=== PATIENT | female | born 1950 | race Caucasian/White ===

== ENCOUNTER → 2018-05-19 10:52 | Outpatient (POV) | payer BC, SELFPAY | PROVIDERS: PCP Family Medicine; Visit Provider Dermatology | DX: Z00.00 Encounter for general adult medical examination without abnormal findings (principal) ==

== ENCOUNTER → 2019-10-04 09:12 | Outpatient (CLI) | payer MEDICARE, SELFPAY ==
[2019-10-04 09:40] LABS: Microscopic, Urine URINE MICROSCOPIC (MICROSCOPIC)
--- NOTE | 2019-10-04 09:52 | XR_ITS ---
PROCEDURE: XR CHEST 2V CLINICAL HISTORY: HTN,ASTHMA COMPARISON: CXR CHEST(2 VIEWS-NOT PORTABLE) from 02/03/2013 FINDINGS: Heart size is borderline. There is an atherosclerotic aorta without CHF. The lungs are clear without infiltrates, suspicious nodules, or pleural effusions. No acute bony abnormalities. IMPRESSION: No acute findings. Dictated by: Alvin Michelle 10/04/2019 15:06 Electronically signed by Alvin Michelle in [facility] 10/04/2019 15:06
[2019-10-04 10:14] LABS: Basophils % 0.5 % (0.1-2.0); Eosinophils # 0.1 K/mm3 (0.0-0.4); Eosinophils % 0.7 % (0.1-12.0); Hemoglobin 14.4 g/dL (12.2-16.2); Lymphocytes # 1.7 K/mm3 (0.7-4.5); Lymphocytes % 23.6 % (10-50); Mean Corpuscular HGB Conc 33.5 g/dL (31.8-35.4); Mean Corpuscular Hemoglobin 28.5 pg (27.0-31.2); Mean Corpuscular Volume 84.9 fl (81-99); Mean Platelet Volume 7.6 fl (7.4-10.4); Monocytes # 0.4 K/mm3 (0.1-1.0); Monocytes % 5.6 % (1.7-9.3); Neutrophils % 69.6 % (37.0-80.0); Platelet Count 288 K/mm3 (142-424); Red Blood Count 5.06 M/mm3 (4.20-5.40); Red Cell Distribution Width 15.1 % (11.5-17.5); White Blood Count 7.2 K/mm3 (4.8-10.8)
[2019-10-04 10:17] LABS: Appearance,Urine CLEAR (Clear); Bilirubin,Urine Negative (Negative); Blood, Urine Negative (Negative); Color,Urine YELLOW (Yellow); Glucose,Urine (UA) Negative (Negative); Ketones,Urine Negative (Negative); Leukocyte Esterase,Urine 1+ (Negative); Nitrate,Urine Negative (Negative); Protein,Urine Negative (Negative); Specific Gravity, Urine 1.015 (1.005-1.030); Urobilinogen,Urine 0.2 EU/dl (0.2)
[2019-10-04 10:18] LABS: INR 0.94 (0.9-1.1); Prothrombin Time 9.8 seconds (9.4-11.8)
--- NOTE | 2019-10-04 10:22 | ECG_ITS ---
APPROVED REPORT Exam: Resting ECG HR:60 bpm ECG Measurements Heart Rate 60 AXES GA 226 P 37 QRSd 86 QRS -9 QT 420 T 32 QTc 420 <Conclusion> Sinus rhythm with 1st degree AV block Low voltage QRS Incomplete RBBB Abnormal ECG Electronically signed by : Akil Pagan, 10/04/2019 17:55:09
[2019-10-04 10:34] LABS: Bacteria,Urine 2+ /lpf; Mucus,Urine Trace /lpf
[2019-10-04 10:40] LABS: Hemoglobin A1C 5.7 % (0.0-7.0)
[2019-10-04 11:07] LABS: Alanine Aminotransferase 32 U/L (9-52); Albumin Level 3.7 g/dL (3.4-5.0); Albumin/Globulin Ratio 1.1 (1.1-1.8); Alkaline Phosphatase 90 U/L (46-116); Anion Gap 16.4 mEq/L (5-15); Aspartate Amino Transferase 19 U/L (15-37); Bilirubin,Total 0.6 mg/dL (0.2-1.0); Blood Urea Nitrogen 19 mg/dL (7-18); Calcium 9.2 mg/dL (8.5-10.1); Carbon Dioxide 26 mmol/L (21.0-32.0); Chloride 105 mmol/L (98-107); Creatinine,Serum 1.17 mg/dL (0.55-1.02); Estimated Glomerular Filt Rate 46 ml/min (>60); GFR (African American) 56 ML/MIN (>60); Globulin 3.4 gm/dl (1.3-3.2); Glucose 113 mg/dL (74-106); Potassium 4.4 mmoL/L (3.5-5.1); Sodium 143 mmol/L (137-145); Total Protein,Serum 7.1 g/dL (6.4-8.2)
== END ==
PROVIDERS: PCP Family Medicine; Visit Provider Orthopaedic Surgery
DX: Z01.818 Encounter for other preprocedural examination (principal); Z79.899 Other long term (current) drug therapy; Z51.81 Encounter for therapeutic drug level monitoring; R82.90 Unspecified abnormal findings in urine
CPT/HCPCS: 36415; 71046; 80053; 81001; 83036; 85025; 85610; 85730; 87086; 87088; 87186; 93005

== ENCOUNTER 2021-07-31 09:48 | Emergency (ER) | payer MEDICARE, SELFPAY ==
--- NOTE | 2021-07-31 09:48 | ECG_ITS ---
APPROVED REPORT Exam: Resting ECG HR:61 bpm ECG Measurements Heart Rate 61 AXES UT 228 P 31 QRSd 92 QRS -27 QT 426 T 11 QTc 428 Conclusion Sinus rhythm with 1st degree AV block Low voltage QRS Late R wave progression Abnormal ECG Electronically signed by : Chucky Wise MD 07/31/2021 17:55:30
[2021-07-31 09:50] VITALS: BP 173/93; PULSE 63; RESP 18; TEMP 36.8; O2SAT 98; BMI 45.7
[2021-07-31 09:52] VITALS: BMI 45.7
--- NOTE | 2021-07-31 09:53 | HMH.EDGENADL ---
ED Disposition Clinical Impression: Atypical chest pain Disposition: Home, Self-Care Condition on Discharge: Good Instructions: DI for Atypical Chest Pain Additional Instructions: Tylenol or ibuprofen for pain. Additional instructions for CHEST PAIN: See your physician as soon as possible for further evaluation. Return immediately if worsening chest pain, vomiting, shortness of breath, fever, coughing of blood. Referrals: Benjamin Johnston MD [Primary Care Provider] - - Critical Care Critical Care Time: No Attestation: On , the high probability of a clinically significant, sudden or life threatening deterioration of the following system(s) required my full and direct attention, intervention and personal management. The time I documented below is in addition to time spent performing reported procedures but includes the following listed in this critical care notation. Medical Decision Making - Jose Inquiry Pt receiving controlled substance: No Vital Signs: 07/31/21 09:50 07/31/21 13:51 Temperature 98.2 F 98.2 F Temperature Source Oral Pulse Rate 61 Pulse Rate [Right Radial] 63 Respiratory Rate 18 17 Blood Pressure 166/87 H Blood Pressure [Right Arm] 173/93 H Blood Pressure Mean [Right Arm] 119 02 Sat by Pulse Oximetry 98 Oxygen Delivery Method Room Air Room Air - Lab Data Lab Results 07/31/21 09:50: WBC 6.2, RBC 5.22, Hgb 15.5, Hct 45.1, MCV 86.3, MCH 29.7, MCHC 34.4, RDW 13.8, Plt Count 280, MPV 6.8 L, Neut % (Auto) 65.2, Lymph % (Auto) 26.6, [place] % (Auto) 6.6, Eos % (Auto) 0.9, Baso % (Auto) 0.6, Neut # (Auto) 4.1, Lymph # (Auto) 1.7, [place] # (Auto) 0.4, Eos # (Auto) 0.1, Baso # (Auto) 0.0 07/31/21 09:50: Sodium 138, Potassium 4.3, Chloride 100, Carbon Dioxide 31 H, Anion Gap 11.3, BUN 23 H, Creatinine 1.10 H, Estimated Creat Clear 39, Estimated GFR 49 L, Est GFR ( Amer) 60, Glucose 154 H, Calcium 9.8, Troponin I < 0.01 07/31/21 12:48: Troponin I < 0.01 Result diagrams: 07/31/21 09:50 07/31/21 09:50 Orders (Tests/Meds): ED MEDICATIONS Discontinued Medications Generic Name Dose Route Start Last Admin Trade Name Alek PRN Reason Stop Dose Admin Aspirin 324 mg 07/31/21 09:53 07/31/21 10:00 Aspirin 81mg Chewable Tablet PO 07/31/21 09:54 324 mg ONCE ONE Administration Ketorolac Tromethamine 15 mg 07/31/21 13:44 07/31/21 13:46 Ketorolac 30mg/Ml Vial IV 07/31/21 13:45 15 mg ONCE ONE Administration - Radiology Data #1 Image(s): Chest Image Reviewed: Yes I reviewed the patient's radiology image, Yes I have reviewed radiologist's interpretation PROCEDURE: XR CHEST 2V CLINICAL HISTORY: cp COMPARISON: CR CXR CHEST(2 VIEWS-NOT PORTABLE) from 02/03/2013 CR XR CHEST 2V from 10/04/2019 FINDINGS: Mild cardiomegaly without failure. The lungs are clear without infiltrates, suspicious nodules, or pleural effusions. There are increased markings in the lung base posteriorly on the lateral view may be related to vascular crowding versus atelectasis or infiltrate. No acute bony abnormalities. IMPRESSION: Increased markings in the lung base posteriorly which may be related to vascular crowding versus patchy atelectasis or infiltrate. Dictated by: Ajay Carcamo MD 07/31/2021 10:39 Ajay Carcamo MD in [facility] 07/31/2021 10:39 - ECG Data Tracing #1 EKG interpreted by José Miguel Garcia MD: Rhythm: sinus Rate: 61 [place]: Left Ectopy: none Conduction: Incomplete right bundle branch block, first-degree AV block ST Segment Changes: none T Wave Changes: none Q Waves: none No evidence of acute ischemia or injury Poor R wave progression Prior electrocardiagrams reviewed. No significant change from prior tracings. - Reevaluation(s) Time: 13:45 Reevaluation #1: Pulse ox 100% on room air. No change in symptoms. Says it still hurts when she puts pressure on the back of her left shoulder. Second troponin normal.
[2021-07-31 10:06] LABS: Basophils % 0.6 % (0.1-2.0); Eosinophils # 0.1 K/mm3 (0.0-0.4); Eosinophils % 0.9 % (0.1-12.0); Hematocrit 45.1 % (37.0-47.0); Hemoglobin 15.5 g/dL (12.2-16.2); Lymphocytes # 1.7 K/mm3 (0.7-4.5); Lymphocytes % 26.6 % (10-50); Mean Corpuscular HGB Conc 34.4 g/dL (31.8-35.4); Mean Corpuscular Hemoglobin 29.7 pg (27.0-31.2); Mean Corpuscular Volume 86.3 fl (81-99); Mean Platelet Volume 6.8 fl (7.4-10.4); Monocytes # 0.4 K/mm3 (0.1-1.0); Monocytes % 6.6 % (1.7-9.3); Neutrophils # 4.1 K/mm3 (1.8-7.8); Neutrophils % 65.2 % (37.0-80.0); Platelet Count 280 K/mm3 (142-424); Red Blood Count 5.22 M/mm3 (4.20-5.40); Red Cell Distribution Width 13.8 % (11.5-17.5); White Blood Count 6.2 K/mm3 (4.8-10.8)
[2021-07-31 10:10] LABS: Anion Gap 11.3 mEq/L (5-15); Blood Urea Nitrogen 23 mg/dl (7-17); Calcium 9.8 mg/dl (8.4-10.2); Carbon Dioxide 31 mmol/L (22.0-30.0); Chloride 100 mmol/L (98-107); Creatinine Clearance Estimated 39 mL/min (50-200); Estimated Glomerular Filt Rate 49 ml/min (>60); GFR (African American) 60 ML/MIN (>60); Glucose 154 mg/dl (74-100); Potassium 4.3 mmoL/L (3.5-5.1); Sodium 138 mmol/L (136-145)
--- NOTE | 2021-07-31 10:14 | PC.NURSE ---
pt to xray
[2021-07-31 10:24] LABS: Troponin I < 0.01 ng/ml (0.00-0.034)
[2021-07-31 13:28] LABS: Troponin I < 0.01 ng/ml (0.00-0.034)
[2021-07-31 13:51] VITALS: BP 166/87; PULSE 61; RESP 17; TEMP 36.8; O2SAT 98
== END 2021-07-31 13:53 | disposition home or self-care (01) ==
PROVIDERS: Emergency Provider Emergency Medicine; PCP Family Medicine
DX: R07.89 Other chest pain (principal); R73.9 Hyperglycemia, unspecified; E78.5 Hyperlipidemia, unspecified; I10 Essential (primary) hypertension; Z79.899 Other long term (current) drug therapy
CPT/HCPCS: 71046; 80048; 84484; 85025; 93005; 96374; 99283

== ENCOUNTER 2021-11-12 23:33 | Emergency (ER) | payer MEDICARE, SELFPAY ==
[2021-11-12 23:34] VITALS: BP 185/93; PULSE 73; RESP 18; TEMP 36.8; O2SAT 93; BMI 44.8
[2021-11-12 23:45] VITALS: BMI 44.8
--- NOTE | 2021-11-12 23:48 | ECG_ITS ---
APPROVED REPORT Exam: Resting ECG HR:80 bpm ECG Measurements Heart Rate 80 AXES SC 118 P 197 QRSd 88 QRS -11 QT 391 T 44 QTc 427 Conclusion ECTOPIC ATRIAL RHYTHM WITH SHORT SC INTERVAL WITH FREQUENT SUPRAVENTRICULAR PREMATURE COMPLEXES Poor R wave progression, previously noted ABNORMAL RHYTHM ECG UNCONFIRMED REPORT Electronically signed by : Chucky Wise MD 11/15/2021 16:21:12
[2021-11-13] VITALS (13 sets, daily range): BP systolic 147–210; BP diastolic 74–104; PULSE 71–110; RESP 14–22; TEMP 36.6; O2SAT 92–97
--- NOTE | 2021-11-13 | CT_ITS ---
PROCEDURE INFORMATION: Exam: CT Abdomen And Pelvis Without Contrast Exam date and time: 11/13/2021 12:19 AM Age: 71 years old Clinical indication: Abdominal pain; Prior surgery; Surgery type: Cholecystectomy; Additional info: Abd pain TECHNIQUE: Imaging protocol: Computed tomography of the abdomen and pelvis without contrast. Radiation optimization: All CT scans at this facility use at least one of these dose optimization techniques: automated exposure control; mA and/or kV adjustment per patient size (includes targeted exams where dose is matched to clinical indication); or iterative reconstruction. COMPARISON: CR XR CHEST 2V 11/13/2021 12:10 AM FINDINGS: Tubes, catheters and devices: None noted. Lungs: Lung bases appear clear. Heart: No significant coronary calcifications. No cardiomegaly. No significant pericardial effusion. Liver: Normal. No mass. Gallbladder and bile ducts: Cholecystectomy. Extrahepatic ductal dilation 16 mm. Choledocholithiasis x2. Pancreas: Choledocholithiasis. No ductal dilation. Spleen: Normal. No splenomegaly. Adrenal glands: Normal. No mass. Kidneys and ureters: Normal. No hydronephrosis. Stomach and bowel: Colonic diverticulosis without diverticulitis. No obstruction. No mucosal thickening. Appendix: Retrocecal appendix is well visualized. No evidence of appendicitis. Intraperitoneal space: Unremarkable. No free air. No significant fluid collection. Retroperitoneal space: No significant retroperitoneal inflammatory changes are noted. Vasculature: Unremarkable. No abdominal aortic aneurysm. Lymph nodes: Unremarkable. No enlarged lymph nodes. Urinary bladder: Unremarkable as visualized. Reproductive: 4 cm fundal fibroid. Bones/joints: Vacuum disc at L2-L3, L3-L4, L4-L5, and L5-S1. Grade 1 spondylolisthesis L4 on L5. No acute fracture. Soft tissues: Unremarkable. IMPRESSION: 1. Extrahepatic biliary dilatation at 16 mm. 2. Choledocholithiasis. 3. 4 cm fundal uterine fibroid.
--- NOTE | 2021-11-13 | XR_ITS ---
PROCEDURE INFORMATION: Exam: XR Chest Exam date and time: 11/13/2021 12:10 AM Age: 71 years old Clinical indication: Other: Upper abdominal; Patient HX: Denies chest pain or SOA; Additional info: Abd pain TECHNIQUE: Imaging protocol: XR of the chest. Views: 2 views. COMPARISON: CR XR CHEST 2V 07/31/2021 10:06 AM FINDINGS: Lungs: Unremarkable. No consolidation. Pleural spaces: Unremarkable. No pleural effusion. No pneumothorax. Heart/Mediastinum: Cardiomegaly. Bones/joints: Unremarkable. IMPRESSION: Cardiomegaly without overt congestive heart failure.
[2021-11-13 00:12] LABS: Chloride 105 mmol/L (98-107)
[2021-11-13 00:13] LABS: Sodium 140 mmol/L (136-145)
[2021-11-13 00:15] LABS: Alanine Aminotransferase 380 U/L (12-78); Alkaline Phosphatase 466 U/L (38-126); Aspartate Amino Transferase 448 U/L (14-36); Bilirubin,Total 4.4 mg/dl (0.2-1.3); Blood Urea Nitrogen 15 mg/dl (7-17); Creatinine Clearance Estimated 32 mL/min (50-200); Estimated Glomerular Filt Rate 41 ml/min (>60); GFR (African American) 49 ML/MIN (>60)
[2021-11-13 00:16] LABS: Albumin/Globulin Ratio 1.3 (1.1-1.8); Carbon Dioxide 29 mmol/L (22.0-30.0); Globulin 3.2 g/dL (1.3-3.2); Total Protein,Serum 7.2 g/dl (6.3-8.2)
[2021-11-13 00:23] LABS: Anion Gap 9.7 mEq/L (5-15); Basophils # 0.1 K/mm3 (0-0.2); Basophils % 0.9 % (0.1-2.0); Eosinophils # 0.1 K/mm3 (0.0-0.4); Eosinophils % 0.8 % (0.1-12.0); Hematocrit 46.1 % (37.0-47.0); Lymphocytes # 1.3 K/mm3 (0.7-4.5); Lymphocytes % 17.4 % (10-50); Mean Corpuscular HGB Conc 32.6 g/dL (31.8-35.4); Mean Corpuscular Hemoglobin 28.6 pg (27.0-31.2); Mean Corpuscular Volume 87.9 fl (81-99); Mean Platelet Volume 7.6 fl (7.4-10.4); Monocytes # 0.4 K/mm3 (0.1-1.0); Monocytes % 5.6 % (1.7-9.3); Neutrophils # 5.7 K/mm3 (1.8-7.8); Neutrophils % 75.4 % (37.0-80.0); Platelet Count 340 K/mm3 (142-424); Potassium 3.7 mmoL/L (3.5-5.1); Red Blood Count 5.24 M/mm3 (4.20-5.40); Red Cell Distribution Width 14.8 % (11.5-17.5); White Blood Count 7.6 K/mm3 (4.8-10.8)
[2021-11-13 00:26] LABS: Amylase 137 U/L (30-110); Calcium 8.8 mg/dl (8.4-10.2); Glucose 174 mg/dl (74-100)
[2021-11-13 00:31] LABS: Lipase 1408 U/L (23-300); Troponin I < 0.01 ng/ml (0.00-0.034)
[2021-11-13 01:08] LABS: Coronavirus 19, PCR Not Detected (NotDetected); Influenza A, PCR Not Detected (NotDetected); Influenza B, PCR Not Detected (NotDetected)
--- NOTE | 2021-11-13 01:41 | PC.NURSE ---
spoke with NICOLE about CT results
--- NOTE | 2021-11-13 01:43 | HMH.EDNVD ---
ED Disposition Clinical Impression: Choledocholithiasis Pancreatitis, acute Qualifiers: Pancreatitis type: other Acute pancreatitis complication: no infection or necrosis Qualified Code(s): K85.80 - Other acute pancreatitis without necrosis or infection Disposition: Xfer Short-Term Hosp Condition on Discharge: Fair Instructions: DI for Acute Abdominal Pain Referrals: Kasi Campos MD [Primary Care Provider] - - Critical Care Critical Care Time: No Attestation: On 11/12/21, the high probability of a clinically significant, sudden or life threatening deterioration of the following system(s) required my full and direct attention, intervention and personal management. The time I documented below is in addition to time spent performing reported procedures but includes the following listed in this critical care notation. Medical Decision Making - Medical Records Medical records reviewed: Yes: I reviewed the patient's medical records. - Jose Inquiry Pt receiving controlled substance: No Vital Signs: 11/12/21 23:34 11/13/21 00:01 11/13/21 00:31 Temperature 98.3 F Temperature Source Oral Pulse Rate 77 77 Pulse Rate [Left Brachial] 73 Respiratory Rate 18 19 Blood Pressure 186/96 H 188/82 H Blood Pressure [Right Arm] 185/93 H Blood Pressure Mean 117 117 Blood Pressure Mean [Right Arm] 123 02 Sat by Pulse Oximetry 93 L 95 94 L Oxygen Delivery Method Room Air 11/13/21 01:02 Temperature Temperature Source Pulse Rate 74 Pulse Rate [Left Brachial] Respiratory Rate 20 Blood Pressure 173/88 H Blood Pressure [Right Arm] Blood Pressure Mean 109 Blood Pressure Mean [Right Arm] 02 Sat by Pulse Oximetry 95 Oxygen Delivery Method - Lab Data Lab results reviewed: Yes: I reviewed the patient's lab results. Lab Results 11/12/21 23:55: Troponin I < 0.01, Amylase 137 H, Lipase 1408 H 11/12/21 23:55: WBC 7.6, RBC 5.24, Hgb 15.0, Hct 46.1, MCV 87.9, MCH 28.6, MCHC 32.6, RDW 14.8, Plt Count 340, MPV 7.6, Neut % (Auto) 75.4, Lymph % (Auto) 17.4, [place] % (Auto) 5.6, Eos % (Auto) 0.8, Baso % (Auto) 0.9, Neut # (Auto) 5.7, Lymph # (Auto) 1.3, [place] # (Auto) 0.4, Eos # (Auto) 0.1, Baso # (Auto) 0.1 11/12/21 23:55: Sodium 140, Potassium 3.7, Chloride 105, Carbon Dioxide 29, Anion Gap 9.7, BUN 15, Creatinine 1.30 H, Estimated Creat Clear 32, Estimated GFR 41 L, Est GFR ( Amer) 49 L, Glucose 174 H, Calcium 8.8, Total Bilirubin 4.4 H, AST 448 H*, ALT 380 H*, Alkaline Phosphatase 466 H, Total Protein 7.2, Albumin 4.0, Globulin 3.2, Albumin/Globulin Ratio 1.3 11/13/21 01:04: SARS-CoV-2 (PCR) Not detected, Influenza A Untype (PCR) Not detected, Influenza Type B (PCR) Not detected Result diagrams: 11/12/21 23:55 11/12/21 23:55 Orders (Tests/Meds): ED MEDICATIONS Generic Name Dose Route Start Last Admin Trade Name Freq PRN Reason Stop Dose Admin Sodium Chloride 1,000 mls @ 999 mls/hr 11/12/21 23:45 11/12/21 23:55 Sod Chlor 0.9% 1000ml Bag IV 11/13/21 00:45 999 mls/hr .Q1H1M FLORA Administration Sodium Chloride 1,000 mls @ 999 mls/hr 11/13/21 01:15 11/13/21 01:52 Sod Chlor 0.9% 1000ml Bag IV 11/13/21 02:15 999 mls/hr .Q1H1M FLORA Administration Sodium Chloride 8 ml 11/12/21 23:51 Sodium Chloride 0.9% 10ml Vial IV 12/12/21 23:50 NEEDED PRN dilute pepcid Discontinued Medications Generic Name Dose Route Start Last Admin Trade Name Freq PRN Reason Stop Dose Admin Famotidine 20 mg 11/12/21 23:51 11/12/21 23:53 Famotidine 20mg/2ml Vial IV 11/12/21 23:52 20 mg ONCE ONE Administration Metoclopramide HCl 10 mg 11/12/21 23:51 11/12/21 23:53 Metoclopramide Hcl 10mg/2ml Vial IVP 11/12/21 23:52 10 mg ONCE ONE Administration Morphine Sulfate 4 mg 11/13/21 02:45 11/13/21 02:47 Morphine 4mg/Ml Syringe IV 11/13/21 02:46 4 mg ONCE ONE Administration Ondansetron HCl 4 mg 11/12/21 23:50 11/12/21 23:54 Ondansetron 4mg/2ml Vial
--- NOTE | 2021-11-13 02:21 | PC.NURSE ---
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 took call back number.
--- NOTE | 2021-11-13 02:31 | PC.NURSE ---
speaking with MD Deisi from [facility] at this time.
--- NOTE | 2021-11-13 03:14 | PC.NURSE ---
Md speaking with hospitalist at [facility]. They do not have an MD that can perform an ERCP available this week.
--- NOTE | 2021-11-13 04:15 | PC.NURSE ---
BED [facility]- REPORT TO CHALRES SANDHU.
== END 2021-11-13 05:12 | disposition short-term general hospital (02) ==
PROVIDERS: Emergency Provider Emergency Medicine; PCP Family Medicine
DX: K85.90 Acute pancreatitis without necrosis or infection, unspecified (principal); K76.0 Fatty (change of) liver, not elsewhere classified; Z20.822 Contact with and (suspected) exposure to COVID-19; Z79.82 Long term (current) use of aspirin; Z79.899 Other long term (current) drug therapy
CPT/HCPCS: 71046; 74176; 80053; 82150; 83690; 84484; 85025; 93005; 96361; 96365; 96366; 96374; 96375; 99285; C9803; J2405; U0003; U0005

== ENCOUNTER → 2021-12-17 09:22 | Outpatient (CLI) | payer MEDICARE, SELFPAY | PROVIDERS: PCP Family Medicine; Visit Provider Internal Medicine Gastroenterology | DX: Z20.822 Contact with and (suspected) exposure to COVID-19 (principal) | CPT/HCPCS: C9803; U0003; U0005 ==

== ENCOUNTER 2022-12-08 12:09 | Emergency (ER) | payer MEDICARE, SELFPAY ==
[2022-12-08 12:25] VITALS: BP 153/79; PULSE 65; RESP 20; TEMP 36.4; O2SAT 97; BMI 43.9
--- NOTE | 2022-12-08 12:36 | EXP.UTC ---
Discharge Plan Disposition Patient Disposition: Home, Self-Care Condition: Good Prescriptions Prescriptions: New phenazopyridine 200 mg Tablet 200 mg PO TID 2 Days Qty: 6 0RF nitrofurantoin monohyd/m-cryst [Macrobid] 100 mg Capsule 100 mg PO BID Qty: 10 0RF Rx Instructions: must administer with a meal/food No Action metoprolol succinate 100 MG tablet extended release 24 hr 1 tab PO DAILY flecainide 100 MG tablet 100 mg PO BID aspirin 81 MG tablet,chewable 1 tab PO DAILY omeprazole magnesium 20 MG tablet,delayed release (DR/EC) 1 tab PO DAILY Referrals Follow up/Referrals: Kasi Campos MD [Primary Care Provider] - See instructions Activity Restrictions/Add. Instructions Additional Instructions/Restrictions: Drink plenty of fluids. Take tylenol or ibuprofen for pain or fever. Take the medications as directed. Follow up with your regular doctor. GO TO THE ER FOR ANY WORSENING SYMPTOMS The pyridium will make your urine turn orange, this is an expected side effect. It will stain your clothes if it comes into contact with them. We will culture the urine. That will tell what bacteria is causing your infection and which antibiotics will treat it best. Sometimes the first antibiotic we prescribe turns out to not work against different bacteria. So, make sure you follow up within 3 days if you are not getting better. Clinical Impressions Clinical Impression: UTI (urinary tract infection) Instructions Patient Instructions: Urine Culture, DI for Urinary Tract Infection (UTI), Phenazopyridine Discharge ED Provider: Daljit Yu [facility] General Stated complaint: frequent and burning when urinating Mode of Arrival: Ambulatory Source of Information: Patient Limitations: No Limitations Time Seen by Provider: 12/08/22 12:36 Description of Symptoms (Recalled from Triage Doc. by RN): PATIENT C/O BURNING WITH URINATION THAT STARTED YESTERDAY HEENT Symptoms (Recalled from RN notes): No Resp Symptoms (Recalled from RN notes): No Skin Symptoms (Recalled from RN notes): No MS Symptoms (Recalled from RN notes): No Functional Status (Recalled from RN notes): WNL History of Present Illness Provider Complaint: She c/o burning with urination, low back pain and malaise for the past 2 days. Related Data Home Medications Medication Instructions Recorded Confirmed aspirin 81 mg chewable tablet 1 tab PO DAILY Blood thinner 11/13/21 11/13/21 flecainide 100 mg tablet 100 mg PO BID Hypertension 11/13/21 11/13/21 metoprolol succinate 100 mg 1 tab PO DAILY Hypertension 11/13/21 11/13/21 tablet,extended release 24 hr omeprazole magnesium 20 mg 1 tab PO DAILY GERD 11/13/21 11/13/21 tablet,delayed release Previous Rx's Medication Instructions Recorded nitrofurantoin 100 mg PO BID #10 caps 12/08/22 monohydrate/macrocrystals 100 mg capsule (Macrobid) phenazopyridine 200 mg tablet 200 mg PO TID 2 days #6 tabs 12/08/22 Allergies Allergy/AdvReac Type Severity Reaction Status Date / Time No Known Allergies Allergy Verified 12/08/22 12:33 Worker's Comp Is this a Worker's Comp case?: [facility] Dis[facility]: The information contained in this section may have been updated after the patient was seen, as this information can be updated by other users. Social History Smoking Status: Never smoker alcohol intake: never current occupational status: other Travel in the last 8 weeks: None ROS Obtained: Yes All systems reviewed & no additional complaints except as documented Constitutional Constitutional: Reports system reviewed and no additional complaints, except as documented, Denies chills and Denies fever(s) Eyes Eyes: Denies eye discharge ENT Ears, Nose, Mouth, and Throat: Denies dysphagia, Denies sore throat and Denies throat swelling Cardiovascular Cardiovascular: Denies chest pain and De
[2022-12-08 12:55] VITALS: BP 153/79; PULSE 65; RESP 20; TEMP 36.4; O2SAT 97
== END 2022-12-08 12:59 | disposition home or self-care (01) ==
PROVIDERS: Emergency Provider Nurse Practitioner Family; PCP Family Medicine
DX: N39.0 Urinary tract infection, site not specified (principal); M54.59 Other low back pain; I10 Essential (primary) hypertension; K21.9 Gastro-esophageal reflux disease without esophagitis
CPT/HCPCS: 99212; 99214; G0463

== ENCOUNTER 2023-09-04 08:45 | Outpatient (CLI) | payer MEDICARE, SELFPAY ==
--- NOTE | 2023-09-04 08:51 | XR_ITS ---
FINAL REPORT CLINICAL HISTORY: OSTEOPOROSIS SCREENING COMPARISON: None FINDINGS: Using L1-4, the bone mineral density of the spine is 1.325 g/cm2, corresponding to T-score of 2.5, within normal limits. Using the left hip, the bone mineral density of the femoral neck is 0.901 g/cm2, corresponding to a T-score of 0.5, within normal limits. Using the right hip, the bone mineral density of the femoral neck is 0.942 g/cm2, corresponding to a T-score of 0.8, within normal limits. FRAX not reported because all T-scores at or above -1.0. NOTE: T-score: Standard deviation compared with peak bone mass of young adult mean. *Following the recommendations of the International Society of Bone densitometry, classification of hip BMD is based on the lower of two T-scores; total hip or femoral neck. IMPRESSION: Normal bone mineral density of the lumbar spine and hips. Reviewed, Interpreted and Dictated by John Benitez III, MD Transcribed by Brittany Hampton Authenticated and [facility]
== END 2023-09-04 23:59 ==
LOC: RAD 08:45
PROVIDERS: PCP Family Medicine; Visit Provider Family Medicine
DX: Z13.820 Encounter for screening for osteoporosis (principal); Z78.0 Asymptomatic menopausal state
CPT/HCPCS: 77080

== ENCOUNTER 2023-09-18 14:39 | Outpatient (CLI) | payer MEDICARE, SELFPAY ==
--- NOTE | 2023-09-18 14:42 | MM_ITS ---
PROCEDURE INFORMATION: Exam: MG Bilateral Screening 3D Mammography Exam date and time: 09/18/2023 2:37 PM Age: 73 years old Clinical indication: Screening. No family history of breast cancer. TECHNIQUE: Imaging protocol: Bilateral Screening tomosynthesis and 2D mammography including computer-aided detection (CAD) when performed. COMPARISON: 1. MG MAMMO SCREENING DIGITAL TOMOSYNTHESIS BILATERAL W CAD 09/13/2022 2:28 PM 2. MG MAMMO SCREENING DIGITAL TOMOSYNTHESIS BILATERAL W CAD 09/04/2021 11:01 AM 3. MG MAMMO SCREENING DIGITAL TOMOSYNTHESIS BILATERAL W CAD 07/27/2020 11:31 AM 4. MG MAMMO SCREENING DIGITAL TOMOSYNTHESIS BILATERAL W CAD 07/05/2019 11:07 AM FINDINGS: MAMMOGRAPHY: Breast composition: There are scattered areas of fibroglandular density. Mass: No suspicious mass. Architectural distortion: None. Calcifications: No suspicious calcifications. Asymmetric density: None. Skin thickening: None. Axillary adenopathy: None. IMPRESSION: No mammographic evidence of malignancy. Annual screening is recommended unless otherwise clinically indicated. A ASSESSMENT: BI-RADS Category 1: Negative
== END 2023-09-18 23:59 ==
LOC: RAD 14:40
PROVIDERS: PCP Family Medicine; Visit Provider Family Medicine
DX: Z12.31 Encounter for screening mammogram for malignant neoplasm of breast (principal)
CPT/HCPCS: 77063; 77067

== ENCOUNTER 2024-09-23 10:15 | Outpatient (CLI) | payer MEDICARE, SELFPAY ==
--- NOTE | 2024-09-23 10:17 | MM_ITS ---
PROCEDURE INFORMATION: Exam: MG Bilateral Screening 3D Mammography Exam date and time: 09/23/2024 10:25 AM Age: 74 years old Clinical indication: Screening examination TECHNIQUE: Imaging protocol: Bilateral Screening tomosynthesis and 2D mammography including computer-aided detection (CAD) when performed. COMPARISON: 1. MG MM DIG SCREENING MAMM BI W/CAD 09/18/2023 2:37 PM 2. MG MAMMO SCREENING DIGITAL TOMOSYNTHESIS BILATERAL W CAD 09/13/2022 2:28 PM FINDINGS: MAMMOGRAPHY: Breast composition: There are scattered areas of fibroglandular density. Mass: No suspicious masses. Architectural distortion: None. Calcifications: No suspicious calcifications. Asymmetric density: None. Skin thickening: None. Axillary adenopathy: None. IMPRESSION: No mammographic evidence of malignancy. Annual screening is recommended unless otherwise clinically indicated. ASSESSMENT: BI-RADS Category 1: Negative.
== END 2024-09-23 23:59 | disposition home or self-care (01) ==
LOC: RAD 10:15
PROVIDERS: PCP Family Medicine; Visit Provider Family Medicine
DX: Z12.31 Encounter for screening mammogram for malignant neoplasm of breast (principal)
CPT/HCPCS: 77063; 77067

== ENCOUNTER 2024-11-15 08:57 | Day surgery (SDC) | payer MEDICARE, SELFPAY ==
[2024-11-12 14:40] VITALS: BMI 38.4
[2024-11-15 09:33] VITALS: BP 137/103; PULSE 78; RESP 17; TEMP 36.7; O2SAT 98
--- NOTE | 2024-11-15 09:48 | P.PNANES_ITS ---
[facility] Disclaimer: The information contained in this section may have been updated after the patient was seen, as this information can be updated by other users. Medical History (Updated 11/12/24 @ 14:40 by Leah Bowling RN) Gallstones History of gastroesophageal reflux (GERD) Hyperlipidemia Hypertension Arrhythmia Surgical History (Updated 11/12/24 @ 14:40 by Leah Bowling RN) Hx of tubal ligation History of cholecystectomy History of section Family History (Updated 11/12/24 @ 14:38 by Leah Bowling RN) Other Colon cancer Heart attack Social History (Updated 11/12/24 @ 14:39 by Leah Bowling RN) Smoking Status: Never smoker alcohol intake: never substance use type: denies use current occupational status: retired Travel in the last 8 weeks: Inside the [place] caffeine: No [facility] Anesthesia Checklist Patient Identification Patient Identification: Arm Band Structural Data Admitted From: Home Planned Operative Procedure/s: Colonoscopy Consent for Planned Operative Procedure(s) Verified: Yes Verified Documents: Surgical Consent and History and Physical NPO Status Verified Time NPO: 06:30 (finished prep) Additional verifications Anesthesia Reactions: No Airway Assessment Mallampati Score:: Class II C-Spine Mobility Assessed: Yes TMJ Mobility Assessed: Yes Dentition: Good Dentition Neurological Assessment Level of Consciousness: Awake, Alert and Appropriate Anesthesia Plan Anesthesia Risk discussed: Yes Anesthesia Plan: Verified ASA Class: II Anesthesia Type: MAC
[2024-11-15 10:17] VITALS: O2SAT 100
--- NOTE | 2024-11-15 10:20 | EXP.HP ---
History of Present Illness *Admission Date: 11/15/24 *Reason for visit:: Personal history of colon polyps/family history of colon cancer *History of present illness: Mrs. Macias is a 74-year-old female who is here for follow-up surveillance colonoscopy secondary to a personal history of adenomatous polyps and family history of colon cancer. The examination is deemed medically necessary for surveillance colonoscopy. The patient has been seen, interviewed and examined prior to the procedure by both myself and the anesthesia provider. [facility] Disclaimer: The information contained in this section may have been updated after the patient was seen, as this information can be updated by other users. Medical History (Updated 11/15/24 @ 10:21 by Frankie Bolaños II, MD) Gallstones History of gastroesophageal reflux (GERD) Hyperlipidemia Hypertension Arrhythmia Surgical History (Updated 11/12/24 @ 14:40 by Leah Bowling RN) Hx of tubal ligation History of cholecystectomy History of section Family History (Updated 11/12/24 @ 14:38 by Leah Bowling RN) Other Colon cancer Heart attack Social History (Updated 11/15/24 @ 09:50 by Juan Delgado CRNA) Smoking Status: Never smoker alcohol intake: never substance use type: denies use current occupational status: retired Travel in the last 8 weeks: Inside the [place] caffeine: No Have you lived/traveled outside [place] in past 30 days?: No Contact w/someone who lives/traveled outside [place] past 30 days?: No Exposure to someone with infectious disease in past 14 days?: No Do you have a fever (greater than 100.4 F or 38 C)?: No Have you tested positive for COVID-19: No Exposed to someone with COVID-19 in past 14 days?: No Do you have a sore throat?: No Do you have a cough?: No Do you have any weakness?: No Do you have any diarrhea?: No Are you experiencing any unusual bleeding?: No Do you have any muscle aches/pain?: No Do you have any abdominal pain?: No Are you experiencing loss of taste or smell?: No Other Medical History Have you received the Flu Vaccine for this season: Yes Have you received the Pneumonia Vaccine: Yes Review of Systems Review of Systems Review of systems (narrative): Negative *Cardiovascular Comments: Negative *Gastrointestinal Comments: Negative *Genitourinary Comments: Negative *Musculoskeletal Comments: Negative *Neurologic Comments: Negative Meds Home Medications and Allergies Home Medications ?Medication ?Instructions ?Recorded ?Confirmed ?Type aspirin 81 mg chewable tablet 1 tab PO DAILY Blood thinner 11/13/21 11/15/24 History flecainide 100 mg tablet 100 mg PO BID Hypertension 11/13/21 11/15/24 History metoprolol succinate 100 mg 1 tab PO DAILY Hypertension 11/13/21 11/15/24 History tablet,extended release 24 hr omeprazole magnesium 20 mg 1 tab PO DAILY GERD 11/13/21 11/15/24 History tablet,delayed release phenazopyridine 200 mg tablet 200 mg PO TID 2 days #6 tabs 12/08/22 11/15/24 Rx sodium sul 1.479 gram-potas ch See Rx Instructions PO PER PKG DIR 11/01/24 11/15/24 Rx 0.188 gram-magnes sul 0.225 gram colonscopy #24 tabs tablet (Sutab) azelastine 137 mcg (0.1 %) nasal 1 spray intranasal BID 11/12/24 11/15/24 History spray cholecalciferol (vitamin D3) 10 0 mcg PO DAILY 11/12/24 11/15/24 History mcg (400 unit) capsule (Vitamin D3) dapagliflozin propanediol 10 mg 10 mg PO DAILY 11/12/24 11/15/24 History tablet (Farxiga) losartan 100 mg tablet 100 mg PO DAILY 11/12/24 11/15/24 History rosuvastatin 10 mg tablet 10 mg PO DAILY 11/12/24 11/15/24 History semaglutide 1 mg/dose (2 mg/1.5 1 mg SQ WEEKLY 11/12/24 11/15/24 History mL) subcutaneous pen injector triamterene 37.5 0.5 tab PO DAILY 11/12/24 11/15/24 History mg-hydrochlorothiazide 25 mg tablet New Prescriptions to Start Prescriptions: Allergies Allergy/AdvReac Type Severity Reaction Status Date / Time No Known Allergies Allergy Verified 11/15/24 09:32 Exam Data for Last 24 hours Vital signs and Labs for Last 24 Hours: Temp Pulse Resp BP Pulse Ox O2 Del Method O2 Flow Rate 98.1 F 78 17 137/103 H 98 Nasal Cannula 5 11/15/24 09:33 11/15/24 09:33 11/15/24 09:33 11/15/24 09:33 11/15/24 09:33 11/15/24 10:17 11/15/24 10:17 I & O for Last 24 hours: Intake & Output 11/12/24 11/13/24 11/14/24 11/15/24 23:59 23:59 23:59 23:59 Weight 210 lb *Routine HEENT Exam Head: Present normocephalic Eye: Present EOMI and PERRL ENT: Present mucous membranes moist *Routine Neck Exam Neck: Present supple *Routine Respiratory Exam Respiratory: Present CTA bilaterally *Routine Cardiovascular Exam Cardiovascular: Present RRR *Routine Abdominal Exam Abdominal: Present soft and normoactive bowel sounds; Absent tenderness *Routine Rectal Exam Rectal:: deferred *Routine Genitalia Exam Genitalia:: deferred *Routine Extremities Exam Extremities: Absent cyanosis, clubbing or edema *Routine Skin Exam Skin: Present warm; Absent rash *Routine Neurological Exam Neurological: Present alert and oriented X3 Assessment and Plan *Assessment and plan (1) Personal history of adenomatous and serrated colon polyps: Status: Acute Category: Medical Code(s): Z86.0101 - Personal history of adenomatous and serrated colon polyps (2) Family history of colon cancer: Status: Acute Category: Medical Code(s): Z80.0 - Family history of malignant neoplasm of digestive organs Plan A/P: 1. Personal history of adenomatous polyps and family history of colon cancer (mother) is the preprocedural diagnosis. The patient will be anesthetized/sedated using MAC sedation. The patient has been seen and examined. Cardiac and lung assessment prior to the examination is stable. Proceed with planned surveillance colonoscopy
--- NOTE | 2024-11-15 10:21 | P.PCN_ITS ---
[facility] Procedure Note Date: 11/15/24 Time: 10:37 Procedure Note:: Colonoscopy Procedure Report: Colonoscopy Endoscopist: Frankie Bolaños II, MD Referring physician: Kasi Campos MD Date of Procedure: November 15, 2024 Equipment: Olympus 190 variable stiffness pediatric colonoscope Sedation: MAC sedation Indication: Mrs. Macias is a 74-year-old female who is here for follow-up surveillance colonoscopy. Her mother had colon cancer at the age of 80. The patient has had routine surveillance colonoscopies and her last colonoscopy was 3 years ago ((Dr. Tony Phan at [facility] in [place]) and she had a couple of benign polyps removed. She has had adenomatous polyps removed previously. She reports no abdominal pain, weight loss, change in her bowel habits or rectal bleeding. She does have a history of choledocholithiasis in 2021. Procedure: Prior to the procedure, a history and physical exam was performed, and patient's medications and allergies were reviewed. The risks, benefits and alternatives of the sedation and procedure were discussed with the patient. All questions were answered and informed consent was obtained. The patient was brought to the procedure room. Patient identification and proposed procedure were verified by the physician and the nurse. The patient was placed in a left lateral decubitus position and the scope was passed under direct vision. Throughout the procedure, the patient's blood pressure, pulse, and oxygen saturations were monitored continuously. The colonoscopy was accomplished without difficulty. The patient tolerated the procedure well. Findings: On digital rectal examination there was normal rectal tone. There were no external hemorrhoids. The colonoscope was introduced through the anal canal to the rectum and advanced to the cecum. The ileocecal valve and appendiceal orifice were identified. The scope was advanced a short distance into the ileum which appeared grossly normal. The scope was then withdrawn into the colon. The cecum, ascending and transverse colon and mucosa were grossly normal. There were scattered diverticuli throughout the colon but more predominantly in the descending and sigmoid colon (LEFT colon). The rectum itself was normal. Upon retroflexion within the rectum there were grade 1-2 internal hemorrhoids. The preparation was excellent throughout with [place] Preparation Score of 9. The cecal time was 10 minutes. Impression: 1. Pandiverticulosis 2. Grade 1-2 internal hemorrhoids Plan: I am not convinced that the patient will require any further preventive/surveillance colonoscopy. I would encourage bulking psyllium fiber supplementation on a maintenance basis.
[2024-11-15 10:41] VITALS: BP 97/59; PULSE 74; RESP 16; TEMP 36.4; O2SAT 94
[2024-11-15 10:51] VITALS: BP 93/64; PULSE 69; RESP 16; O2SAT 96
[2024-11-15 11:01] VITALS: BP 112/76; PULSE 74; RESP 16; O2SAT 99
[2024-11-15 11:11] VITALS: BP 100/61; PULSE 70; RESP 18; O2SAT 99
== END 2024-11-15 11:16 | disposition home or self-care (01) ==
PROVIDERS: PCP Family Medicine; Visit Provider Internal Medicine Gastroenterology
PROC: 0DJD8ZZ Inspection of Lower Intestinal Tract, Via Natural or Artificial Opening Endoscopic (ICD-10-PCS; CPT 45378; principal; 2024-11-15 10:30)
DX: K57.30 Diverticulosis of large intestine without perforation or abscess without bleeding (principal); K64.8 Other hemorrhoids; Z86.0101 Personal history of adenomatous and serrated colon polyps; Z80.0 Family history of malignant neoplasm of digestive organs
CPT/HCPCS: 45378

== ENCOUNTER 2025-05-15 12:18 | Outpatient (CLI) | payer MEDICARE, SELFPAY ==
--- OUTSIDE RECORDS SUMMARY | 2024-02-06 05:00 | XMS_ITS ---
Author Organization [facility] Address [address] [place] [id number] Care Team Providers Care Diesel Lube Tech Name Role Phone Kasi Campos Primary Care Provider [phone] Allergies No Known Allergies Results Component Value Reference Range Notes Glucose (In-House) Reviewed date:02/09/2024 02:34:06 PM Interpretation:119 Performing Lab: Notes/Report: 119 blood glucose 119 74 - 106 mg/dL Glycohemoglobin A1c (in hous e) Reviewed date:02/09/2024 02:34:06 PM Interpretation:5.3 Performing Lab: Notes/Report: 5.3 glycohemoglobin 5.3% 5 - 6.5 % P-Comprehensive Metabolic Pa christopher (CMP) Reviewed date:02/09/2024 02:34:06 PM Interpretation:gluc 108, Cr 1.1, gfr 54 Performing Lab: Notes/Report: Test performed by [facility] , [address], [place] [address] Dajuan Richard MD, Shoe Polisher CLIA: [id number] Sodium 140 135-145 mEq/L Potassium 4.4 3.5-5.3 mEq/L Chloride 102 97-108 mEq/L CO2 24 22-32 mEq/L Glucose 108 65-99 mg/dL BUN 19 8-23 mg/dL Creatinine 1.10 0.50-1.00 mg/dL Calcium 9.9 8.6-10.4 mg/dL eGFR by Creatinine 54 >59 mL/min/1.73m2 Protein 6.8 6.0-8.3 g/dL Albumin 4.3 3.5-5.3 g/dL Alkaline Phosphatase 85 35-121 IU/L ALT (SGPT) 17 <5-47 IU/L AST (SGOT) 23 <5-40 IU/L Bilirubin, Total 0.7 <0.2-1.2 mg/dL A/G Ratio 1.7 1.1-2.5 mg/dL P-Lipid Panel Reviewed date:02/09/2024 02:34:06 PM Interpretation:Normal Performing Lab: Notes/Report: Test performed by [email or web address], [address] , [place] [address] Dajuan Richard MD, Shoe Polisher CLIA: [id number] Cholesterol 135 <200 mg/dL Triglycerides 140 <150 mg/dL HDL Cholesterol 46 >39 mg/dL Cholesterol / HDL Ratio 2.93 0.00-4.44 Ratio Non-HDL Cholesterol 89 <130 mg/dL LDL Cholesterol (Calculation) 61 <130 mg/dL LDL Cholesterol Levels* Less than 100 mg/dL Optimal 100 to 129 mg/dL Near Optimal/ Above Optimal 130 to 159 mg/dL Borderline High 160 to 189 mg/dL High 190 mg/dL and above Very High * Categories as recommended by the 2004 ATPIII guidelines LDL/HDL Ratio 1.3 <3.3 Ratio LDL Cholesterol Patient History Test Date: 09/02/2022 LDL Results: 69 Units: mg/dL % Change: - Test Date: 02/06/2023 LDL Results: 64 Units: mg/dL % Change: -7% Test Date: 02/06/2024 LDL Results: 61 Units: mg/dL % Change: -4% P-Phosphorus Reviewed date:02/09/2024 02:34:06 PM Interpretation:Normal Performing Lab: Notes/Report: Test performed by [facility] [address] [place] [address] , [address], [place] [address] Dajuan Richard MD, Shoe Polisher CLIA: [id number] Phosphorus 4.3 2.5-4.5 mg/dL P-TSH reflex to FT4 Reviewed date:02/09/2024 02:34:06 PM Interpretation:Normal Performing Lab: Notes/Report: Test performed by [facility] [address] [place] [address] , [address], [place] [address] Dajuan Richard MD, Shoe Polisher CLIA: [id number] TSH reflex to FT4 3.87 0.43-5.25 mU/L P-Microalbumin/Creatinine, R andom Urine Sample Reviewed date:02/09/2024 02:34:06 PM Interpretation:Normal Performing Lab: Notes/Report: Test performed by [facility] [address] [place] [address] , [address], [place] [address] Dajuan Richard MD, Shoe Polisher CLIA: [id number] Albumin/Creatinine Ratio, Urine 7 0-30 ug/m g Microalbumin, Urine, Random 0.8 Creatinine, Urine 122.5 P-Vitamin D 25-Hydroxy Reviewed date:02/09/2024 02:34:06 PM Interpretation:Normal Performing Lab: Notes/Report: Test performed by [email or web address], [facility] [facility] [employer] [address] [place] [address] , [address], [place] [address] Dajuan Richard MD, Shoe Polisher CLIA: [id number] Vitamin D 25-Hydroxy 59.5 30.0-100.0 ng/mL Interpretation of Vitamin D 25 OH: < 20 ng/mL - Deficiency 20 - 29 ng/mL - Insufficiency 30 - 100 ng/mL - Sufficiency > 100 ng/mL - Super-therapeutic- toxicity may occur above this level. Clinical correlation required. REASON FOR VISIT 6 Month Check Up Medications Medication SIG (Take, Route, Frequency, Duration) Notes Start Date End Date Status Crestor 10 MG 1 tab(s) orally once a day Active PriLOSEC OTC 20 MG 1 tab(s) orally once a day Active Losartan Potassium 100 MG Take 1 tablet by mouth once daily Active ZyrTEC Allergy 10 MG 1 tab(s) orally onc e a day Active Flecainide Acetate 100 MG 1 tab(s) orall y twice daily Active ALLERGY INJECTIONS DIRECTED PER ACCESS SERVICES REPRESENTATIVE Active Aspirin 325 MG 1 tab(s) orally once daily Active Vitamin D3 50 MCG (1999 UT) 2 cap(s) ora lly once a day 12/13/2015 Active Toprol XL 100 MG 1 tab(s) orally once a day Active Triamterene-HCTZ 37.5-25 MG Take 1/2 (on e-half) tablet by mouth once daily Active Nystatin 891731 UNIT/GM 1 eldon applied to pically 2 times a day 12/11/2022 Active Dapagliflozin Propanediol 10 MG Take 1 tablet by mouth once daily Active Ozempic (0.25 or 0.5 MG/DOSE) 2 MG/3ML 0.5 mg Subcutaneous once weekly 02/06/2023 Active Problems Problem Type SNOMED Code ICD Code Onset Dates Problem Status W/U Status Risk Notes Problem Obesity (783189148) Non morbid obesity (E66.9) Active confirmed Vital Signs Weight 218 lbs 02/06/2024 Blood pressure systolic 130 mm Hg 02/06/20 24 Blood pressure diastolic 74 mm Hg 024 Heart Rate 77 /min 02/06/2024 Height 62 in 02/06/2024 BMI 39.87 kg/m2 02/06/2024 Encounters Encounter Location Date Provider Diagnosis [facility] [address] [place] [id number] 02/06/2024 Kasi Campos Type 2 diabetes zara itus with diabetic chronic kidney disease E11.22 ; Stage 3b chronic kidney disease N18.32 ; Essential (primary) hypertension I10 ; Vitamin D deficiency E55.9 ; Mixed hyperlipidemia E78.2 and Non morbid obesity E66.9 Assessments Encounter Date Diagnosis (ICD Code) Assessment Notes Treatment Notes Treatment Clinical Notes Section Notes 02/06/2024 Type 2 diabetes mellitus with diabetic chronic kidney disease (ICD-10 - E11.22) 02/06/2024 Stage 3b chronic kidney disease (ICD-10 - N18.32) 02/06/2024 Essential (primary) hypertension (ICD-10 - I10) 02/06/2024 Vitamin D deficiency (ICD-10 - E55.9) 02/06/2024 Mixed hyperlipidemia (ICD-10 - E78.2) 02/06/2024 Non morbid obesity (ICD-10 - E66.9) Plan Of Treatment Medication Medication Name Sig Start Date Stop Date Notes Crestor 10 MG 1 tab(s) orally once a day Losartan Potassium 100 MG Take 1 tablet by mouth once daily Toprol XL 100 MG 1 tab(s) orally once a day Triamterene-HCTZ 37.5-25 MG Take 1/2 (on e-half) tablet by mouth once daily Dapagliflozin Propanediol 10 MG Take 1 tablet by mouth once daily Ozempic (0.25 or 0.5 MG/DOSE ) 2 MG/3ML 0.5 mg Subcutaneous once weekly 02/06/2023 Next Appt Details Follow Up: 6 Months, Reason: Provider Name:Kasi Cannon , 08/09/2025 09:15:00 AM, [address], [address], [place], [id number], Progress Notes * JHONY MACIAS:1950 ( 74 yo F)Acc No.[id number]:02/06/2024 Progress Notes Patient: FATMATA RIVEAR Provider: Daniella Campos M.D. DOB:1950 A ge:73 Y S ex:Female Date:02/06/2024 Address:[address], [place], [id number] Subjective: * Chief Complaints: * 1 . 6 Month Check Up. * HPI: C ardiology: 73 year old female presents with c/o Blood Pressure Elevated?Pt here for 6 mo f/u on hypertension, states she is doing well and does not have any concerns.? c/o Hyperlipidemia p t is fasting today. E ndocrinology: c/o Recent Blood Sugars P t here to f/u on DM 2. * ROS: D ERMATOLOGY: no R jessica. n o H jose a. G ASTROENTEROLOGY: no N ausea. n o V omiting. U ROLOGY: no D ifficulty urinating. n o B lood in urine. * Medical History: H ypertension, Cardiac Dysrrhythmia, PAC's 2003 Holter, Cardiolyte GXT 2004, Allergies, Hyperlipidemia, Vitamin D Deficiency, Sleep Apnea, Declines CPAP, Gall Stone Pancreatitis, s/p ERCP at [facility] in [place], 10/2021, Colon Polyps. * Surgical History: C -SECTION , Cholecystectomy 01/2013, LT Knee Replacement 11/01/2019. * Hospitalization/Major Diagno stic Procedure: G allstones and Cholecystectomy 01/2013. * Family History: F ather: , FATHER WITH AMI, diagnosed with Heart Disease. M other: , MOTHER AT 79 WITH COLON CANCER, diagnosed with Cancer. S iblings: alive. C hillina: alive, hyperlipidemia. 1 sister(s) - healthy. 1 son(s) , 1 daughter(s) - healthy. . * Social History: C URRENT TOBACCO USE S moking Status: Patient does NOT smoke. C affeine: yes, daily. Home smoke detector use: yes. Marital Status: . Past smoking status: no. Alcohol: occasionally. * Medications: T aking Vitamin D3 50 MCG (2000 UT) Capsule 2 cap(s) orally once a day , Taking ALLERGY INJECTIONS DIRECTED PER ACCESS SERVICES REPRESENTATIVE , Taking Aspirin 325 MG Tablet 1 tab(s) orally once daily , Taking Flecainide Acetate 100 MG Tablet 1 tab(s) orally twice daily , Taking PriLOSEC OTC 20 MG Tablet Delayed Release 1 tab(s) orally once a day , Taking ZyrTEC Allergy 10 MG Tablet 1 tab(s) orally once a day , Taking Nystatin 263691 UNIT/GM Ointment 1 eldon applied topically 2 times a day , Taking Crestor 10 MG Tablet 1 tab(s) orally once a day , Taking Ozempic (0.25 or 0.5 MG/DOSE) 2 MG/3ML Solution Pen-injector 0.5 mg Subcutaneous once weekly , Taking Toprol XL 100 MG Tablet Extended Release 24 Hour 1 tab(s) orally once a day , Taking Triamterene-HCTZ 37.5-25 MG Tablet Take 1/2 (one-half) tablet by mouth once daily , Taking Dapagliflozin Propanediol 10 MG Tablet Take 1 tablet by mouth once daily , Taking Losartan Potassium 100 MG Tablet Take 1 tablet by mouth once daily , Medication List reviewed and reconciled with the patient * Allergies: N .K.D.A. Objective: * Vitals: W t:218, Temp:98.0, BP:130/74, HR:77, Nurse:franko, Ht: 62, BMI:39.87. * Examination: C ardiology: General Appearance: p leasant, NAD. H EENT: u nremarkable. H eart sounds: R RR, normal S1, S2. L ungs: c lear, no rales or wheezes.?Extremities: t race b ilateral leg edema. Assessment: * Assessment: 1. T ype 2 diabetes mellitus with diabetic chronic kidney disease - E11.22 (Primary) 2 . S tage 3b chronic kidney disease - N18.32 3 . E ssential (primary) hypertension - I10 4 . V itamin D deficiency - E55.9 5 . M ixed hyperlipidemia - E78.2 6 . N on morbid obesity - E66.9 Plan: * Treatment: Value Reference Range A /G Ratio 1.7 1.1-2.5 - mg/dL * A lbumin 4.3 3.5-5.3 - g/dL * A lkaline Phosphatase 85 35-121 - IU/L * A LT (SGPT) 17 <5-47 - IU/L * A ST (SGOT) 23 <5-40 - IU/L * B ilirubin, Total 0.7 <0.2-1.2 - mg/dL * B UN 19 8-23 - mg/dL * C alcium 9.9 8.6-10.4 - mg/dL * C hloride 102 97-108 - mEq/L * C O2 24 22-32 - mEq/L * C reatinine 1.10 H 0.50-1.00 - mg/dL * G lucose 108 H 65-99 - mg/dL * P otassium 4.4 3.5-5.3 - mEq/L * S odium 140 135-145 - mEq/L * P rotein 6.8 6.0-8.3 - g/dL * e GFR by Creatinine 54 L >59 - mL/min/1.73m2 * Toshia Miller 02/09/2024 2:33: 51 PM >See phone encounter ?LAB: P-Microalbumin/Creatinine, Random Urine Sample (Collection Date & Time - 02/06/2024 08:35 AM)?Normal* Value Reference Range A lbumin/Creatinine Ratio, Urine 7 0-30 - ug /mg * C reatinine, Urine 122.5 - mg/dL * M icroalbumin, Urine, Random 0.8 - mg/dL * Toshia Miller 02/09/2024 2:33: 51 PM >See phone encounter ?LAB: Glucose (In-House) (Collection Date & Time - 02/06/2024)?119* Value Reference Range b lood glucose 119 74 - 106 mg/dL * Leann Fuentes 02/06/2024 9:4 6:34 AM > Toshia Miller 02/09/2024 2:33:51 PM >See phone encounter ?LAB: Glycohemoglobin A1c (in house) (Collection Date & Time - 02/06/2024)? 5.3* Value Reference Range g lycohemoglobin 5.3% 5 - 6.5 % * Leann Fuentes 02/06/2024 9:4 6:59 AM > Toshia Miller 02/09/2024 2:33:51 PM >See phone encounter 2.?Stage 3b chronic kidney disease? Continue Dapagliflozin Propanediol Tablet, 10 MG, Take 1 tablet by mouth once daily.?LAB: P-Comprehensive Metabolic Panel (CMP) (Collection Date & Time - 02/06/2024 08:35 AM)?gluc 108, Cr 1.1, gfr 54* Value Reference Range A /G Ratio 1.7 1.1-2.5 - mg/dL * A lbumin 4.3 3.5-5.3 - g/dL * A lkaline Phosphatase 85 35-121 - IU/L * A LT (SGPT) 17 <5-47 - IU/L * A ST (SGOT) 23 <5-40 - IU/L * B ilirubin, Total 0.7 <0.2-1.2 - mg/dL * B UN 19 8-23 - mg/dL * C alcium 9.9 8.6-10.4 - mg/dL * C hloride 102 97-108 - mEq/L * C O2 24 22-32 - mEq/L * C reatinine 1.10 H 0.50-1.00 - mg/dL * G lucose 108 H 65-99 - mg/dL * P otassium 4.4 3.5-5.3 - mEq/L * S odium 140 135-145 - mEq/L * P rotein 6.8 6.0-8.3 - g/dL * e GFR by Creatinine 54 L >59 - mL/min/1.73m2 * Toshia Miller 02/09/2024 2:33: 51 PM >See phone encounter ?LAB: P-Phosphorus (Collection Date & Time - 02/06/2024 08:35 AM)?Normal* Value Reference Range P hosphorus 4.3 2.5-4.5 - mg/dL * Toshia Miller 02/09/2024 2:33: 51 PM >See phone encounter 3.?Essential (primary) hypertension? Continue Triamterene-HCTZ Tablet, 37.5-25 MG, Take 1/2 (one-half) tablet by mouth once daily;?Continue Toprol XL Tablet Extended Release 24 Hour, 100 MG, 1 tab(s), orally, once a day;?Continue Losartan Potassium Tablet, 100 MG, Take 1 tablet by mouth once daily.??4.?Vitamin D deficiency?LAB: P-Vitamin D 25-Hydroxy (Collection Date & Time - 02/06/2024 08:35 AM)? Normal* Value Reference Range V itamin D 25-Hydroxy 59.5 30.0-100.0 - ng/mL * Angela,Toshia 02/09/2024 2:33: 51 PM >See phone encounter 5.?Mixed hyperlipidemia? Continue Crestor Tablet, 10 MG, 1 tab(s), orally, once a day.?LAB: P-Comprehensive Metabolic Panel (CMP) (Collection Date & Time - 02/06/2024 08:35 AM)?gluc 108, Cr 1.1, gfr 54* Value Reference Range A /G Ratio 1.7 1.1-2.5 - mg/dL * A lbumin 4.3 3.5-5.3 - g/dL * A lkaline Phosphatase 85 35-121 - IU/L * A LT (SGPT) 17 <5-47 - IU/L * A ST (SGOT) 23 <5-40 - IU/L * B ilirubin, Total 0.7 <0.2-1.2 - mg/dL * B UN 19 8-23 - mg/dL * C alcium 9.9 8.6-10.4 - mg/dL * C hloride 102 97-108 - mEq/L * C O2 24 22-32 - mEq/L * C reatinine 1.10 H 0.50-1.00 - mg/dL * G lucose 108 H 65-99 - mg/dL * P otassium 4.4 3.5-5.3 - mEq/L * S odium 140 135-145 - mEq/L * P rotein 6.8 6.0-8.3 - g/dL * e GFR by Creatinine 54 L >59 - mL/min/1.73m2 * Toshia Miller 02/09/2024 2:33: 51 PM >See phone encounter ?LAB: P-Lipid Panel (Collection Date & Time - 02/06/2024 08:35 AM)?Normal* Value Reference Range C holesterol / HDL Ratio 2.93 0.00-4.44 - Ratio * C holesterol 135 <200 - mg/dL * H DL Cholesterol 46 >39 - mg/dL * L DL Cholesterol (Calculation) 61 <130 - mg/d L * L DL/HDL Ratio 1.3 <3.3 - Ratio * N on-HDL Cholesterol 89 <130 - mg/dL * T riglycerides 140 <150 - mg/dL * Toshia Miller 02/09/2024 2:33: 51 PM >See phone encounter ?LAB: P-TSH reflex to FT4 (Collection Date & Time - 02/06/2024 08:35 AM)? Normal* Value Reference Range T SH reflex to FT4 3.87 0.43-5.25 - mU/L * Toshia Miller 02/09/2024 2:33: 51 PM >See phone encounter * Procedure Codes: G 2211 Complex e/[place], [address] GLUCOSE TEST, 48640 GLYCATED HEMOGLOBIN TEST, Modifiers: QW * Follow Up: 6 Months * Images: Billing Information: * Visit Code: 83382 Office Visit, Est Pt., Level 4. * Procedure Codes: G2211 Complex e/[place]. [address] GLUCOSE TEST. 46952 GLYCATED HEMOGLOBIN TEST. Modifiers: QW * Electronic signature of Melina Campos MD on 05/16/2025 at 11:24 AM EDT Sign off status: Pending * Provider: Daniella Campos M.D. Date: 0 02/06/2024 Generated for Terese oconnor/Josefa/eTransmitting on: 0 05/16/2025 11:24 AM EDT History and Physical Notes * HPI (History of Present Illness) Category Sub-Category Detail Notes Category Not es Endocrinology Recent Blood Sugars Pt here to f/u on DM 2 Cardiology Blood Pressure Elevated Pt here for 6 mo f/u on hypertension, states she is doing well and does not have any concerns Hyperlipidemia pt is fasting today Examination Category Sub-Category Detail Notes Category Not es Cardiology Lungs: clear, no rales or wheezes HEENT: unremarkable Heart sounds: RRR, normal S1, S2 Extremities: trace bilateral leg edema General Appearance: pleasant, NAD
--- OUTSIDE RECORDS SUMMARY | 2024-08-09 05:00 | XMS_ITS ---
Author Organization [facility] Address [address] [facility] [address] [place] [id number] Care Team Providers Care Spiral Tube Winder Name Role Phone Kasi Campos Primary Care Provider Allergies No Known Allergies Results Component Value Reference Range Notes Glucose (In-House) Reviewed date:08/10/2024 10:58:00 AM Interpretation: Normal Performing Lab: Notes/Report: Normal blood glucose 120 74 - 106 mg/dL Glycohemoglobin A1c (in hous e) Reviewed date:08/10/2024 10:58:00 AM Interpretation: Normal Performing Lab: Notes/Report: Normal glycohemoglobin 5.3% 5 - 6.5 % P-Basic Metabolic Panel (BMP ) Reviewed date:08/10/2024 10:58:00 AM Interpretation:glu 105, creat 1.16, gfr 50 Performing Lab: Notes/Report: Test performed by [facility] , [address], [place] [address] Dajuan Richard MD, Sql Server Consultant CLIA: [id number] Sodium 140 135-145 mmol/L Potassium 4.5 3.5-5.3 mmol/L Chloride 103 97-108 mmol/L CO2 26 22-32 mmol/L Glucose 105 65-99 mg/dL BUN 18 8-23 mg/dL Creatinine 1.16 0.50-1.00 mg/dL Calcium 9.5 8.6-10.4 mg/dL eGFR by Creatinine 50 >59 mL/min/1.73m2 P-Phosphorus Reviewed date:08/10/2024 10:58:00 AM Interpretation: Normal Performing Lab: Notes/Report: Test performed by [facility] [employer] [address] [place] [address] , [address], [place] [address] Dajuan Richard MD, Sql Server Consultant CLIA: [id number] Phosphorus 4.1 2.5-4.5 mg/dL P-Vitamin D 25-Hydroxy Reviewed date:08/10/2024 10:58:00 AM Interpretation: Normal Performing Lab: Notes/Report: Test performed by [facility] [employer] [facility] [address] [place] [address] , [address], [place] [address] Dajuan Richard MD, Sql Server Consultant CLIA: [id number] Vitamin D 25-Hydroxy 72.4 30.0-100.0 ng/mL Interpretation of Vitamin D 25 OH: < 20 ng/mL - Deficiency 20 - 29 ng/mL - Insufficiency 30 - 100 ng/mL - Sufficiency > 100 ng/mL - Super-therapeutic- toxicity may occur above this level. Clinical correlation required. REASON FOR VISIT checkup Medications Medication SIG (Take, Route, Frequency, Duration) Notes Start Date End Date Status Vitamin D3 50 MCG (1999) 2 cap(s) ora lly once a day 12/13/2015 Active Losartan Potassium 100 MG Take 1 tablet by mouth once daily; Duration: 90 Active Toprol XL 100 MG 1 tab(s) orally Once a day; Duration: 90 days Active Triamterene-HCTZ 37.5-25 MG Take 1/2 (on e-half) tablet by mouth once daily; Duration: 90 days Active Dapagliflozin Propanediol 10 MG 1 tablet Orally Once a day; Duration: 90 days Active Flecainide Acetate 100 MG 1 tab(s) orall y twice daily Active ZyrTEC Allergy 10 MG 1 tab(s) orally onc e a day Active PriLOSEC OTC 20 MG 1 tab(s) orally once a day Active Crestor 10 MG 1 tab(s) orally once a day Active Nystatin 507622 UNIT/GM 1 eldon applied to pically 2 times a day 12/11/2022 Active ALLERGY INJECTIONS DIRECTED PER SYSTEMS PLANNER Active Aspirin 325 MG 1 tab(s) orally once daily Active Ozempic (1 MG/DOSE) 4 MG/3ML 1 mg Subcutaneous once weekly 08/09/2024 Active Vital Signs Weight 215.4 lbs 08/09/2024 Blood pressure systolic 130 mm Hg 08/09/20 24 Blood pressure diastolic 80 mm Hg 024 Heart Rate 75 /min 08/09/2024 Height 62 in 08/09/2024 BMI 39.39 kg/m2 08/09/2024 Encounters Encounter Location Date Provider Diagnosis [facility] [address] [facility] [address] [place] [id number] 08/09/2024 Kasi Campos Type 2 diabetes zara itus with diabetic chronic kidney disease E11.22 ; Stage 3b chronic kidney disease N18.32 ; Essential (primary) hypertension I10 ; Vitamin D deficiency E55.9 and Colon cancer screening Z12.11 Assessments Encounter Date Diagnosis (ICD Code) Assessment Notes Treatment Notes Treatment Clinical Notes Section Notes 08/09/2024 Type 2 diabetes mellitus with diabetic chronic kidney disease (ICD-10 - E11.22) 08/09/2024 Stage 3b chronic kidney disease (ICD-10 - N18.32) 08/09/2024 Essential (primary) hypertension (ICD-10 - I10) 08/09/2024 Vitamin D deficiency (ICD-10 - E55.9) 08/09/2024 Colon cancer screening (ICD-10 - Z12.11) Plan Of Treatment Medication Medication Name Sig Start Date Stop Date Notes Ozempic (1 MG/DOSE) 4 MG/3ML 1 mg Subcutaneous once weekly 08/09/2024 Ozempic (0.25 or 0.5 MG/DOSE) 2 MG/3ML 0.5 mg Subcutaneous once weekly 07/20/2024 Pending Test Test Name Order Date colonoscopy 08/09/2024 Next Appt Details Follow Up: 6 Months, Reason: Provider Name:Kasi Cannon ry, 08/09/2025 09:15:00 AM, [address] [facility], [address], [place], [id number], Progress Notes * FATMATA MACIASDOB:1950 ( 74 yo F)Acc No.[id number]:08/09/2024 Progress Notes Patient: FATMATA RIVERA Provider: Daniella Campos M.D. :1950 A ge:74 Y S ex:Female Date:08/09/2024 Address:[address] [place], [place] [address]S [facility] [place], [place], [id number] Subjective: * Chief Complaints: * 1 . Checkup. * HPI: C ardiology: 74 year old female presents with c/o Blood Pressure Elevated?Pt here to f/u on hypertension, states she is doing well and does not have any concerns. c/o Hyperlipidemia P t is fasting today. E ndocrinology: c/o Recent Blood Sugars P t here to f/u on DM 2, pt states that she does not check blood sugar at home. * ROS: D ERMATOLOGY: no R jessica. n o H jose a. G ASTROENTEROLOGY: no N ausea. n o V omiting. U ROLOGY: no D ifficulty urinating. n o B lood in urine. * Medical History: H ypertension, Cardiac Dysrrhythmia, PAC's 2003 Holter, Cardiolyte GXT 2004, Allergies, Hyperlipidemia, Vitamin D Deficiency, Sleep Apnea, Declines CPAP, Gall Stone Pancreatitis, s/p ERCP at [facility] in [place], 10/2021, Colon Polyps. * Surgical History: C -SECTION , Cholecystectomy 01/2013, LT Knee Replacement 11/01/2019. * Hospitalization/Major Diagno stic Procedure: G allstones and Cholecystectomy 01/2013. * Family History: F ather: , FATHER WITH AMI, diagnosed with Heart Disease. M other: , MOTHER AT 79 WITH COLON CANCER, diagnosed with Cancer. S iblings: alive. C hildren: alive, hyperlipidemia. 1 sister(s) - healthy. 1 son(s) , 1 daughter(s) - healthy. . * Social History: C URRENT TOBACCO USE S moking Status: Patient does NOT smoke. C affeine: yes, daily. Home smoke detector use: yes. Marital Status: . Past smoking status: no. Alcohol: occasionally. * Medications: T aking Vitamin D3 50 MCG (1999 UT) Capsule 2 cap(s) orally once a day , Taking ALLERGY INJECTIONS DIRECTED PER SYSTEMS PLANNER , Taking Aspirin 325 MG Tablet 1 tab(s) orally once daily , Taking Flecainide Acetate 100 MG Tablet 1 tab(s) orally twice daily , Taking PriLOSEC OTC 20 MG Tablet Delayed Release 1 tab(s) orally once a day , Taking ZyrTEC Allergy 10 MG Tablet 1 tab(s) orally once a day , Taking Nystatin 112880 UNIT/GM Ointment 1 eldon applied topically 2 times a day , Taking Crestor 10 MG Tablet 1 tab(s) orally once a day , Taking Toprol XL 100 MG Tablet Extended Release 24 Hour 1 tab(s) orally Once a day , Taking Dapagliflozin Propanediol 10 MG Tablet 1 tablet Orally Once a day , Taking Triamterene-HCTZ 37.5-25 MG Tablet Take 1/2 (one- half) tablet by mouth once daily , Taking Losartan Potassium 100 MG Tablet Take 1 tablet by mouth once daily , Taking Ozempic (0.25 or 0.5 MG/DOSE) 2 MG/3ML Solution Pen-injector 0.5 mg Subcutaneous once weekly , Medication List reviewed and reconciled with the patient * Allergies: N .K.D.A. Objective: * Vitals: W t:215.4, Temp:97.8, BP:130/80, HR:75, Nurse:franko, Ht: 62, BMI:39.39. * Examination: C ardiology: General Appearance: p [...] itamin D deficiency - E55.9 5 . C olon cancer screening - Z12.11 Plan: * Treatment: Value Reference Range B UN 18 8-23 - mg/dL * C alcium 9.5 8.6-10.4 - mg/dL * C hloride 103 97-108 - mmol/L * C O2 26 22-32 - mmol/L * C reatinine 1.16 H 0.50-1.00 - mg/dL * G lucose 105 H 65-99 - mg/dL * P otassium 4.5 3.5-5.3 - mmol/L * S odium 140 135-145 - mmol/L * e GFR by Creatinine 50 L >59 - mL/min/1.73m2 * Apryl Theodore 08/10/2024 10: 57:34 AM > See phone encounter ?LAB: Glucose (In-House) (Collection Date & Time - 08/09/2024)?Normal* Value Reference Range b lood glucose 120 74 - 106 mg/dL * KingOfe 08/09/2024 10:24: 02 AM > Apryl Theodore 08/10/2024 10:57:34 AM > See phone encounter ?LAB: Glycohemoglobin A1c (in house) (Collection Date & Time - 08/09/2024)? Normal* Value Reference Range g lycohemoglobin 5.3% 5 - 6.5 % * Ofe King 08/09/2024 10:27: 11 AM > Apryl Theodore 08/10/2024 10:57:34 AM > See phone encounter 2.?Stage 3b chronic kidney disease?LAB: P-Basic Metabolic Panel (BMP) (Collection Date & Time - 08/09/2024 08:30 AM)?glu 105, creat 1.16, gfr 50* Value Reference Range B UN 18 8-23 - mg/dL * C alcium 9.5 8.6-10.4 - mg/dL * C hloride 103 97-108 - mmol/L * C O2 26 22-32 - mmol/L * C reatinine 1.16 H 0.50-1.00 - mg/dL * G lucose 105 H 65-99 - mg/dL * P otassium 4.5 3.5-5.3 - mmol/L * S odium 140 135-145 - mmol/L * e GFR by Creatinine 50 L >59 - mL/min/1.73m2 * Apryl Theodore 08/10/2024 10: 57:34 AM > See phone encounter ?LAB: P-Phosphorus (Collection Date & Time - 08/09/2024 08:30 AM)?Normal* Value Reference Range P hosphorus 4.1 2.5-4.5 - mg/dL * Apryl Theodore 08/10/2024 10: 57:34 AM > See phone encounter 3.?Essential (primary) hypertension?LAB: P-Basic Metabolic Panel (BMP) (Collection Date & Time - 08/09/2024 08:30 AM)?glu 105, creat 1.16, gfr 50* Value Reference Range B UN 18 8-23 - mg/dL * C alcium 9.5 8.6-10.4 - mg/dL * C hloride 103 97-108 - mmol/L * C O2 26 22-32 - mmol/L * C reatinine 1.16 H 0.50-1.00 - mg/dL * G lucose 105 H 65-99 - mg/dL * P otassium 4.5 3.5-5.3 - mmol/L * S odium 140 135-145 - mmol/L * e GFR by Creatinine 50 L >59 - mL/min/1.73m2 * Apryl Theodore 08/10/2024 10: 57:34 AM > See phone encounter 4.?Vitamin D deficiency?LAB: P-Vitamin D 25-Hydroxy (Collection Date & Time - 08/09/2024 08:30 AM)? Normal* Value Reference Range V itamin D 25-Hydroxy 72.4 30.0-100.0 - ng/mL * Apryl Theodore 08/10/2024 10: 57:34 AM > See phone encounter 5.?Colon cancer screening?Imaging: colonoscopy* LizetteAmandeepCayla 08/09/2024 9:32 :42 AM > faxed to Dr. Bolaños * Procedure Codes: G 2211 Complex e/[place], [address] GLUCOSE TEST, 70404 GLYCATED HEMOGLOBIN TEST, Modifiers: QW * Follow Up: 6 Months * Images: Billing Information: * Visit Code: 77592 Office Visit, Est Pt., Level 4. * Procedure Codes: G2211 Complex e/[place]. [address] GLUCOSE TEST. 33547 GLYCATED HEMOGLOBIN TEST. Modifiers: QW * Electronic signature of Melina Campos MD on 05/16/2025 at 11:24 AM EDT Sign off status: Pending * Provider: Daniella Campos M.D. Date: 1 10/10/2023 Generated for Terese oconnor/Josefa/eTransmitting on: 0 05/16/2025 11:24 AM EDT History and Physical Notes * HPI (History of Present Illness) Category Sub-Category Detail Notes Category Not es Endocrinology Recent Blood Sugars Pt here to f /u on DM 2, pt states that she does not check blood sugar at home Cardiology Blood Pressure Elevated Pt here to f/u on hypertension, states she is doing well and does not have any concerns Hyperlipidemia Pt is fasting today Examination Category Sub-Category Detail Notes Category Not es Cardiology Lungs: clear, no rales or wheezes HEENT: unremarkable Heart sounds: RRR, normal S1, S2 Extremities: trace bilateral leg edema General Appearance: pleasant, NAD
--- OUTSIDE RECORDS SUMMARY | 2024-09-08 06:00 | XMS_ITS ---
Author Organization [facility] Address [address] [place] [id number] Care Team Providers Care Sheet Mill Supervisor Name Role Phone Kasi Campos Primary Care Provider Jalyn Gunderson Unavailable [phone] Allergies No Known Allergies Results Component Value Reference Range Notes Rapid Strep- Inhouse Reviewed date:09/08/2024 10:59:57 AM Interpretation:Negative Performing Lab: Notes/Report: Negative strep test neg CBC Fingerstick (in house) Reviewed date:09/08/2024 11:00:05 AM Interpretation: Performing Lab: Notes/Report: wbc 11.7 3.5 - 10 lym 8.6 15 - 50 mid 2.5 2 - 15 gran 88.9 35 - 80 rbc 5.76 3.5 - 5.5 hgb 16.3 11.5 - 16.5 hct 49.0 35 - 55 mcv 85.1 75 - 100 mch 28.3 25 - 35 mchc 33.2 31 - 38 plat 163 100 - 400 REASON FOR VISIT sore throat Medications Medication SIG (Take, Route, Frequency, Duration) Notes Start Date End Date Status Aspirin 325 MG 1 tab(s) orally once daily Active Cefdinir 300 MG 1 cap(s) Orally Two times a day; Duration: 10 day(s) 09/08/2024 Active ZyrTEC Allergy 10 MG 1 tab(s) orally onc e a day Active PriLOSEC OTC 20 MG 1 tab(s) orally once a day Active Flecainide Acetate 100 MG 1 tab(s) orall y twice daily Active ALLERGY INJECTIONS DIRECTED PER CAR SALESMAN Active Vitamin D3 50 MCG (1999) 2 cap(s) ora lly once a day 12/13/2015 Active Toprol XL 100 MG 1 tab(s) orally Once a day; Duration: 90 days Active Ozempic (1 MG/DOSE) 4 MG/3ML 1 mg Subcutaneous once weekly 08/09/2024 Active Losartan Potassium 100 MG Take 1 tablet by mouth once daily; Duration: 90 Active Triamterene-HCTZ 37.5-25 MG Take 1/2 (on e-half) tablet by mouth once daily; Duration: 90 days Active Dapagliflozin Propanediol 10 MG 1 tablet Orally Once a day; Duration: 90 days Active Crestor 10 MG 1 tab(s) orally once a day Active Nystatin 629783 UNIT/GM 1 eldon applied to pically 2 times a day 12/11/2022 Active Vital Signs Weight 214.4 lbs 09/08/2024 Blood pressure systolic 118 mm Hg 09/08/19 25 Blood pressure diastolic 70 mm Hg 025 Heart Rate 82 /min 09/08/2024 Height 62 in 09/08/2024 BMI 39.21 kg/m2 09/08/2024 Encounters Encounter Location Date Provider Diagnosis [facility] [address] [facility] [address] [place], [place] [address], [place] [phone] 09/08/2024 Jalyn Gunderson Acute pharyngitis du e to other specified organisms J02.8 and Other specified bacterial agents as the cause of diseases classified elsewhere B96.89 Assessments Encounter Date Diagnosis (ICD Code) Assessment Notes Treatment Notes Treatment Clinical Notes Section Notes 09/08/2024 Acute pharyngitis due to other specified organisms (ICD-10 - J02.8) 09/08/2024 Other specified bacterial agents as the cause of diseases classified elsewhere (ICD-10 - B96.89) Rest, Fluids, tylenol or motrin for fever, gargle with warm water or salt water, throw away toothbrush after a few days on the antibiotic Plan Of Treatment Medication Medication Name Sig Start Date Stop Date Notes Cefdinir 300 MG 1 cap(s) Orally Two times a day; Duration: 10 day(s) 09/08/2024 Treatment Notes Assessment Notes Other specified bacterial ag ents as the cause of diseases classified elsewhere Rest, Fluids, tylenol or motrin for fever, gargle with warm water or salt water, throw away toothbrush after a few days on the antibiotic Next Appt Details Follow Up: prn, Reason: Provider Name:Kasi Cannon ry, 08/09/2025 09:15:00 AM, [address] [facility], [address], [place], [id number], Progress Notes * FATMATA HUBBARDDOB:1950 ( 74 yo F)Acc No.[id number]:09/08/2024 Progress Notes Patient: FATMATA RIVERA Provider: BERTA Enrique :1950 A ge:74 Y S ex:Female Date:09/08/2024 Address:[address] [place] [address], [id number] Pcp:Kasi Campos Subjective: * Chief Complaints: * 1 . Sore throat. * HPI: E NT/respiratory: 74 year old female presents with c/o sore throat P t presents today with c/o sore throat for three days. Pt sts that it was a mild soreness but sts that it has gradually got worse every day. Pt sts that her throat hurts more on the left side than on the right. Pt c/o pressure in the ear on the left side. Pt sts that she has four grandsons and could have been exposed to an illness. * ROS: D ERMATOLOGY: no R jessica. n o H jose a. G ASTROENTEROLOGY: no N ausea. n o V omiting. U ROLOGY: no D ifficulty urinating. n o B lood in urine. * Medical History: H ypertension, Cardiac Dysrrhythmia, PAC's 2003 Holter, Cardiolyte GXT 2004, Allergies, Hyperlipidemia, Vitamin D Deficiency, Sleep Apnea, Declines CPAP, Gall Stone Pancreatitis, s/p ERCP at [facility] in [place], 10/2021, Colon Polyps. * Surgical History: C -SECTION , Cholecystectomy 01/2013, LT Knee Replacement 11/01/2019. * Hospitalization/Major Diagno stic Procedure: G allstones and Cholecystectomy 01/2013. * Family History: F ather: , FATHER WITH AMI, diagnosed with Heart Disease. M other: , MOTHER AT 79 WITH COLON CANCER, diagnosed with Cancer. S andrea: alive. C florence: alive, hyperlipidemia. 1 sister(s) - healthy. 1 [...] day , Taking ALLERGY INJECTIONS DIRECTED PER CAR SALESMAN , Taking Aspirin 325 MG Tablet 1 tab(s) orally once daily , Taking Flecainide Acetate 100 MG Tablet 1 tab(s) orally twice daily , Taking PriLOSEC OTC 20 MG Tablet Delayed Release 1 tab(s) orally once a day , Taking ZyrTEC Allergy 10 MG Tablet 1 tab(s) orally once a day , Taking Nystatin 278614 UNIT/GM Ointment 1 eldon applied topically 2 times a day , Taking Crestor 10 MG Tablet 1 tab(s) orally once a day , Taking Dapagliflozin Propanediol 10 MG Tablet 1 tablet Orally Once a day , Taking Triamterene-HCTZ 37.5-25 MG Tablet Take 1/2 (one- half) tablet by mouth once daily , Taking Losartan Potassium 100 MG Tablet Take 1 tablet by mouth once daily , Taking Ozempic (1 MG/DOSE) 4 MG/3ML Solution Pen-injector 1 mg Subcutaneous once weekly , Taking Toprol XL 100 MG Tablet Extended Release 24 Hour 1 tab(s) orally Once a day , Medication List reviewed and reconciled with the patient * Allergies: N .K.D.A. Objective: * Vitals: W t:214.4, Temp:98.5, BP:118/70, HR:82, Nurse:JASON, Ht: 62, BMI:39.21. * Examination: E NT/Respiratory: General Appearance: N AD. E ars: a uditory canals normal bilaterally, TM's WNL. N ose : n o edema, good color. S inuses : non tender bilaterally. O ral cavity : erythema without exudate on pharynx. N mauro : supple, mildly tender anterior adenopathy. H eart : R RR, normal S1 S2, no murmurs. L ungs:?clear to auscultation bilaterally. Assessment: * Assessment: 1. A cute pharyngitis due to other specified organisms - J02.8 (Primary) 2 .?Other specified bacterial agents as the cause of diseases classified elsewhere - B96.89 ? Plan: * Treatment: Value Reference Range s trep test neg * Apryl Theodore 09/08/2024 10:0 7:26 AM > results reviewed w pt in Jalyn Laguerre 09/08/2024 10:59:54 AM > ?LAB: CBC Fingerstick (in house) (Collection Date & Time - 09/08/2024)* Value Reference Range w bc 11.7 3.5 - 10 * l ym 8.6 15 - 50 * m id 2.5 2 - 15 * g ran 88.9 35 - 80 * r bc 5.76 3.5 - 5.5 * h gb 16.3 11.5 - 16.5 * h ct 49.0 35 - 55 * m cv 85.1 75 - 100 * m ch 28.3 25 - 35 * m chc 33.2 31 - 38 * p lat 163 100 - 400 * Apryl Theodore 09/08/2024 10:1 4:53 AM > results reviewed w/ pt in Jalyn Laguerre 09/08/2024 11:00:02 AM > 2.?Other specified bacterial agents as the cause of diseases classified elsewhere? Start Cefdinir Capsule, 300 MG, 1 cap(s), Orally, Two times a day, 10 day(s), 20 Capsule, Refills 0.?? Notes: Rest, Fluids, tylenol or motrin for fever, gargle with warm water or salt water, throw away toothbrush after a few days on the antibiotic?? * Procedure Codes: 8 7880 STREP A ASSAY W/OPTIC, Modifiers: QW , 14863 CAPILLARY BLOOD DRAW, 27327 CBC WITH AUTO DIFF * Follow Up: p rn * Images: Billing Information: * Visit Code: 24981 Office Visit, Est Pt., Level 3. * Procedure Codes: 13908 STREP A ASSAY W/OPTIC. Modifiers: QW 69895 CAPILLARY BLOOD DRAW. 51072 CBC WITH AUTO DIFF. * Electronic signature of BERTA Everett on 05/16/2025 at 11:24 AM EDT Sign off status: Pending * Provider: BERTA Enrique Date: 0 09/08/2024 Generated for Terese oconnor/Josefa/Valery on: 0 05/16/2025 11:24 AM EDT History and Physical Notes * HPI (History of Present Illness) Category Sub-Category Detail Notes Category Not es ENT/respiratory sore throat Pt presents toda y with c/o sore throat for three days. Pt sts that it was a mild soreness but sts that it has gradually got worse every day. Pt sts that her throat hurts more on the left side than on the right. Pt c/o pressure in the ear on the left side. Pt sts that she has four grandsons and could have been exposed to an illness Examination Category Sub-Category Detail Notes Category Not es ENT/Respiratory Oral cavity : erythema without exudate on pharynx Sinuses : non tender bilateral ly Ears: auditory canals norm al bilaterally, TM's WNL Neck : supple, mildly tende r anterior adenopathy Heart : RRR, normal S1 S2, n o murmurs Lungs: clear to auscultatio n bilaterally General Appearance: NAD Nose : no edema, good color
--- OUTSIDE RECORDS SUMMARY | 2025-02-07 05:00 | XMS_ITS ---
[facility] Address [address] [place] [id number] Care Team Providers Care Incinerator Attendant Name Role Phone Kasi Campos Primary Care Provider Allergies No Known Allergies Results Component Value Reference Range Notes Glucose (In-House) Reviewed date:02/08/2025 05:04:15 PM Interpretation:112 Performing Lab: Notes/Report: 112 blood glucose 112 74 - 106 mg/dL CBC Venipuncture (in house) Reviewed date:02/08/2025 05:04:15 PM Interpretation:rbc 5.79 Performing Lab: Notes/Report: rbc 5.79 wbc 7.0 3.5 - 10 lymph 24.9% 15 - 50 mid 6.0% 2 - 15 gran 4.8% 35 - 80 rbc 5.79 3.5 - 5.5 hgb 16.3 11.5 - 16.5 hct 49.8 35 - 55 mcv 86.0 75 - 100 mch 28.2 25 - 35 mchc 32.8 31 - 38 platlet 242 100 - 400 Glycohemoglobin A1c (in hous e) Reviewed date:02/08/2025 05:04:15 PM Interpretation:5.3 Normal Performing Lab: Notes/Report: 5.3 Normal glycohemoglobin 5.3% 5 - 6.5 % P-Comprehensive Metabolic Pa christopher (CMP) Reviewed date:02/08/2025 05:04:15 PM Interpretation:Cr 1.10, gfr 53 Performing Lab: Notes/Report: Test performed by [facility] , [address], [place] [address] Dajuan Richard MD, Help Desk Rep CLIA: [id number] Sodium 142 135-145 mmol/L Potassium 4.6 3.5-5.3 mmol/L Chloride 102 97-108 mmol/L CO2 28 22-32 mmol/L Glucose 99 65-99 mg/dL BUN 15 8-23 mg/dL Creatinine 1.10 0.50-1.00 mg/dL Calcium 10.0 8.6-10.4 mg/dL eGFR by Creatinine 53 >59 mL/min/1.73m2 Protein 7.0 6.0-8.3 g/dL Albumin 4.5 3.5-5.3 g/dL Alkaline Phosphatase 99 35-121 IU/L ALT (SGPT) 18 <5-47 IU/L AST (SGOT) 20 <5-40 IU/L Bilirubin, Total 0.9 <0.2-1.2 mg/dL A/G Ratio 1.8 1.1-2.5 P-Lipid Panel Reviewed date:02/08/2025 05:04:15 PM Interpretation:Normal Performing Lab: Notes/Report: Test performed by [facility], [address] , [address], [place] [address] Dajuan Richard MD, Help Desk Rep CLIA: [id number] Cholesterol 120 <200 mg/dL Triglycerides 120 <150 mg/dL HDL Cholesterol 48 >39 mg/dL Cholesterol / HDL Ratio 2.50 0.00-4.44 Ratio Non-HDL Cholesterol 72 <130 mg/dL LDL Cholesterol (Calculation) 48 <130 mg/dL LDL Cholesterol Levels* Less than 100 mg/dL Optimal 100 to 129 mg/dL Near Optimal/ Above Optimal 130 to 159 mg/dL Borderline High 160 to 189 mg/dL High 190 mg/dL and above Very High * Categories as recommended by the 2004 ATPIII guidelines LDL/HDL Ratio 1.0 <3.3 Ratio LDL Cholesterol Patient History Test Date: 02/06/2023 LDL Results: 64 Units: mg/dL % Change: -7% Test Date: 02/06/2024 LDL Results: 61 Units: mg/dL % Change: -4% Test Date: 02/07/2025 LDL Results: 48 Units: mg/dL % Change: -21% P-Phosphorus Reviewed date:02/08/2025 05:04:15 PM Interpretation:Normal Performing Lab: Notes/Report: Test performed by [facility] [address] [place] [address] [place] [address] Dajuan Richard MD, Help Desk Rep CLIA: [id number] Phosphorus 4.1 2.5-4.5 mg/dL P-TSH reflex to FT4 Reviewed date:02/08/2025 05:04:15 PM Interpretation:Normal Performing Lab: Notes/Report: Test performed by [facility] [address] [place] [address] [address], [place] [address] Dajuan Richard MD, Help Desk Rep CLIA: [id number] TSH reflex to FT4 2.70 0.43-5.25 mU/L P-Microalbumin/Creatinine, R andom Urine Sample Reviewed date:02/08/2025 05:04:15 PM Interpretation:Normal Performing Lab: Notes/Report: Test performed by [facility] [address] [place] [address] , [address], [place] [address] Dajuan Richard MD, Help Desk Rep CLIA: [id number] Albumin/Creatinine Ratio, Urine <5.57 0-30 ug/m g Microalbumin, Urine, Random <0.3 Creatinine, Urine 53.8 P-Vitamin D 25-Hydroxy Reviewed date:02/08/2025 05:04:15 PM Interpretation:Normal Performing Lab: Notes/Report: Test performed by [facility] [address] [place] [address] , [address], [place] [address] Dajuan Richard MD, Help Desk Rep CLIA: [id number] Vitamin D 25-Hydroxy 74.0 30.0-100.0 ng/mL Interpretation of Vitamin D 25 OH: < 20 ng/mL - Deficiency 20 - 29 ng/mL - Insufficiency 30 - 100 ng/mL - Sufficiency > 100 ng/mL - Super-therapeutic- toxicity may occur above this level. Clinical correlation required. REASON FOR VISIT 6 month ckup Medications Medication SIG (Take, Route, Frequency, Duration) Notes Start Date End Date Status Crestor 10 MG 1 tab(s) orally once a day Active PriLOSEC OTC 20 MG 1 tab(s) orally once a day Active ZyrTEC Allergy 10 MG 1 tab(s) orally once a day Active Aspirin Adult Low Dose 81 MG 1 tablet Orally Once a day A ctive Flecainide Acetate 100 MG 1 tab(s) orall y twice daily Active Vitamin D3 50 MCG (1999 UT) 2 cap(s) orally once a day 12/13/2015 A ctive ALLERGY INJECTIONS DIRECTED PER TIEING MACHINE OPERATOR Active Triamterene-HCTZ 37.5-25 MG Take 1/2 (one-half) tablet by mouth once daily Active Toprol XL 100 MG 1 tab(s) orally Once a day Active Dapagliflozin Propanediol 10 MG 1 tablet Orally Once a day A ctive Losartan Potassium 100 MG Take 1 tablet by mouth once daily Active ALPRAZolam 0.25 MG 1 or 2 tablets Orally once daily As needed 02/07/2025 Active Ozempic (1 MG/DOSE) 4 MG/3ML INJECT 1 MG SUBCUTANEOUSLY ONCE A WEEK Active Problems Problem Type SNOMED Code ICD Code Onset Dates Problem Status W/U Status Risk Notes Problem Fear of flying (837793571) Fear of flying (F40.243) Active confirmed Vital Signs Weight 210.8 lbs 02/07/2025 Blood pressure systolic 122 mm Hg 02/08/20 25 Blood pressure diastolic 76 mm Hg 025 Heart Rate 77 /min 02/07/2025 Height 62 in 02/07/2025 BMI 38.55 kg/m2 02/07/2025 Encounters Encounter Location Date Provider Diagnosis [facility] [address] [place] [id number] 02/07/2025 Kasimanju Campos Essential (primary) hypertension I10 ; Mixed hyperlipidemia E78.2 ; Type 2 diabetes mellitus with diabetic chronic kidney disease E11.22 ; Stage 3b chronic kidney disease N18.32 ; Vitamin D deficiency E55.9 ; Non morbid obesity E66.9 and Fear of flying F40.243 Assessments Encounter Date Diagnosis (ICD Code) Assessment Notes Treatment Notes Treatment Clinical Notes Section Notes 02/07/2025 Essential (primary) hypertension (ICD-10 - I10) 02/07/2025 Mixed hyperlipidemia (ICD-10 - E78.2) 02/07/2025 Type 2 diabetes mellitus with diabetic chronic kidney disease (ICD-10 - E11.22) 02/07/2025 Stage 3b chronic kidney disease (ICD-10 - N18.32) 02/07/2025 Vitamin D deficiency (ICD-10 - E55.9) 02/07/2025 Non morbid obesity (ICD-10 - E66.9) 02/07/2025 Fear of flying (ICD-10 - F40.243) Plan Of Treatment Medication Medication Name Sig Start Date Stop Date Notes Triamterene-HCTZ 37.5-25 MG Take 1/2 (on e-half) tablet by mouth once daily Toprol XL 100 MG 1 tab(s) orally Once a day Dapagliflozin Propanediol 10 MG 1 tablet Orally Once a day Losartan Potassium 100 MG Take 1 tablet by mouth once daily ALPRAZolam 0.25 MG 1 or 2 tablets Orall y once daily 02/07/2025 Ozempic (1 MG/DOSE) 4 MG/3ML INJECT 1 MG SUBCUTANEOUSLY ONCE A WEEK Next Appt Details Follow Up: 6 Months, Reason: Provider Name:Kasi Cannon ry, 08/09/2025 09:15:00 AM, [address], [address], [place], [place], [id number], Progress Notes * FATMATA MACIASDOB:1950 ( 74 yo F)Acc No.[id number]:02/07/2025 Progress Notes Patient: FATMATA RIVERA Provider: Daniella Campos M.D. :1950 A ge:74 Y S ex:Female Date:02/07/2025 Address:[facility], [place], [id number] Subjective: * Chief Complaints: * 1 . 6 month ckup. * HPI: C ardiology: 74 year old female presents with c/o Blood Pressure Elevated?Pt here for 6 mo f/u on hypertension. Pt states she is doing well and does not have any concerns.? c/o Hyperlipidemia P t is fasting today. E ndocrinology: c/o Recent Blood Sugars P t here to f/u on DM . * ROS: D ERMATOLOGY: no R jessica. n o H jose a. G ASTROENTEROLOGY: no N ausea. n o V omiting. U ROLOGY: no D ifficulty urinating. n o B lood in urine. * Medical History: H ypertension, Cardiac Dysrrhythmia, PAC's 2003 Holter, Cardiolyte GXT 2004, Allergies, Hyperlipidemia, Vitamin D Deficiency, Sleep Apnea, Declines CPAP, Gall Stone Pancreatitis, s/p ERCP at [facility] in [place], 10/2021, Colon Polyps. * Surgical History: C [...] no. Alcohol: occasionally. * Medications: T aking Aspirin Adult Low Dose 81 MG Tablet Delayed Release 1 tablet Orally Once a day , Taking Vitamin D3 50 MCG (2000 UT) Capsule 2 cap(s) orally once a day , Taking ALLERGY INJECTIONS DIRECTED PER TIEING MACHINE OPERATOR , Taking Flecainide Acetate 100 MG Tablet 1 tab(s) orally twice daily , Taking PriLOSEC OTC 20 MG Tablet Delayed Release 1 tab(s) orally once a day , Taking ZyrTEC Allergy 10 MG Tablet 1 tab(s) orally once a day , Taking Crestor 10 MG Tablet 1 tab(s) orally once a day , Taking Toprol XL 100 MG Tablet Extended Release 24 Hour 1 tab(s) orally Once a day , Taking Triamterene-HCTZ 37.5-25 MG Tablet Take 1/2 (one-half) tablet by mouth once daily , Taking Dapagliflozin Propanediol 10 MG Tablet 1 tablet Orally Once a day , Taking Losartan Potassium 100 MG Tablet Take 1 tablet by mouth once daily , Taking Ozempic (1 MG/DOSE) 4 MG/3ML Solution Pen-injector INJECT 1 MG SUBCUTANEOUSLY ONCE A WEEK , Discontinued Aspirin 325 MG Tablet 1 tab(s) orally once daily , Discontinued Nystatin 203769 UNIT/GM Ointment 1 eldon applied topically 2 times a day , Discontinued Cefdinir 300 MG Capsule 1 cap(s) Orally Two times a day , Medication List reviewed and reconciled with the patient * Allergies: N .K.D.A. Objective: * Vitals: W t: 210.8, Temp: 97.9, BP: 122/76, HR: 77, Nurse: beata, Ht: 62, BMI:38.55. * Examination: C ardiology: General Appearance: p leasant, NAD. H EENT: u nremarkable. H eart sounds: R RR, normal S1, S2. L ungs: c lear, no rales or wheezes.?Extremities: t race b ilateral leg edema. Assessment: * Assessment: 1. E ssential (primary) hypertension - I10 (Primary) 2 . M ixed hyperlipidemia - E78.2 3 . T ype 2 diabetes mellitus with diabetic chronic kidney disease - E11.22 4 . S tage 3b chronic kidney disease - N18.32 5 . V itamin D deficiency - E55.9 6 . N on morbid obesity - E66.9 7 .?Fear of flying - F40.243 Plan: * Treatment: Value Reference Range A /G Ratio 1.8 1.1-2.5 - * A lbumin 4.5 3.5-5.3 - g/dL * A lkaline Phosphatase 99 35-121 - IU/L * A LT (SGPT) 18 <5-47 - IU/L * A ST (SGOT) 20 <5-40 - IU/L * B ilirubin, Total 0.9 <0.2-1.2 - mg/dL * B UN 15 8-23 - mg/dL * C alcium 10.0 8.6-10.4 - mg/dL * C hloride 102 97-108 - mmol/L * C O2 28 22-32 - mmol/L * C reatinine 1.10 H 0.50-1.00 - mg/dL * G lucose 99 65-99 - mg/dL * P otassium 4.6 3.5-5.3 - mmol/L * S odium 142 135-145 - mmol/L * P rotein 7.0 6.0-8.3 - g/dL * e GFR by Creatinine 53 L >59 - mL/min/1.73m2 * Apryl [place] 02/08/2025 05: 04:06 PM EDT > See phone encounter 2.?Mixed hyperlipidemia?LAB: P-Comprehensive Metabolic Panel (CMP) (Collection Date & Time - 02/07/2025 08:45 AM)?Cr 1.10, gfr 53* Value Reference Range A /G Ratio 1.8 1.1-2.5 - * A lbumin 4.5 3.5-5.3 - g/dL * A lkaline Phosphatase 99 35-121 - IU/L * A LT (SGPT) 18 <5-47 - IU/L * A ST (SGOT) 20 <5-40 - IU/L * B ilirubin, Total 0.9 <0.2-1.2 - mg/dL * B UN 15 8-23 - mg/dL * C alcium 10.0 8.6-10.4 - mg/dL * C hloride 102 97-108 - mmol/L * C O2 28 22-32 - mmol/L * C reatinine 1.10 H 0.50-1.00 - mg/dL * G lucose 99 65-99 - mg/dL * P otassium 4.6 3.5-5.3 - mmol/L * S odium 142 135-145 - mmol/L * P rotein 7.0 6.0-8.3 - g/dL * e GFR by Creatinine 53 L >59 - mL/min/1.73m2 * Apryl [place] 02/08/2025 05: 04:06 PM EDT > See phone encounter ?LAB: P-Lipid Panel (Collection Date & Time - 02/07/2025 08:45 AM)?Normal* Value Reference Range C holesterol / HDL Ratio 2.50 0.00-4.44 - Ratio * C holesterol 120 <200 - mg/dL * H DL Cholesterol 48 >39 - mg/dL * L DL Cholesterol (Calculation) 48 <130 - mg/d L * L DL/HDL Ratio 1.0 <3.3 - Ratio * N on-HDL Cholesterol 72 <130 - mg/dL * T riglycerides 120 <150 - mg/dL * Apryl [place] 02/08/2025 05: 04:06 PM EDT > See phone encounter 3.?Type 2 diabetes mellitus with diabetic chronic kidney disease? Continue Ozempic (1 MG/DOSE) Solution Pen-injector, 4 MG/3ML, INJECT 1 MG SUBCUTANEOUSLY ONCE A WEEK;?Continue Dapagliflozin Propanediol Tablet, 10 MG, 1 tablet, Orally, Once a day.?LAB: P-Comprehensive Metabolic Panel (CMP) (Collection Date & Time - 02/07/2025 08:45 AM)?Cr 1.10, gfr 53* Value Reference Range A /G Ratio 1.8 1.1-2.5 - * A lbumin 4.5 3.5-5.3 - g/dL * A lkaline Phosphatase 99 35-121 - IU/L * A LT (SGPT) 18 <5-47 - IU/L * A ST (SGOT) 20 <5-40 - IU/L * B ilirubin, Total 0.9 <0.2-1.2 - mg/dL * B UN 15 8-23 - mg/dL * C alcium 10.0 8.6-10.4 - mg/dL * C hloride 102 97-108 - mmol/L * C O2 28 22-32 - mmol/L * C reatinine 1.10 H 0.50-1.00 - mg/dL * G lucose 99 65-99 - mg/dL * P otassium 4.6 3.5-5.3 - mmol/L * S odium 142 135-145 - mmol/L * P rotein 7.0 6.0-8.3 - g/dL * e GFR by Creatinine 53 L >59 - mL/min/1.73m2 * Apryl [place] 02/08/2025 05: 04:06 PM EDT > See phone encounter ?LAB: P-TSH reflex to FT4 (Collection Date & Time - 02/07/2025 08:45 AM)? Normal* Value Reference Range T SH reflex to FT4 2.70 0.43-5.25 - mU/L * Apryl [place] 02/08/2025 05: 04:06 PM EDT > See phone encounter ?LAB: P-Microalbumin/Creatinine, Random Urine Sample (Collection Date & Time - 02/07/2025 08:45 AM)?Normal* Value Reference Range A lbumin/Creatinine Ratio, Urine <5.57 0-30 - ug /mg * C reatinine, Urine 53.8 - mg/dL * M icroalbumin, Urine, Random <0.3 - mg/dL * Apryl [place] 02/08/2025 05: 04:06 PM EDT > See phone encounter ?LAB: Glucose (In-House) (Collection Date & Time - 02/07/2025)?112* Value Reference Range b lood glucose 112 74 - 106 mg/dL * Ofe King 02/07/2025 10:16: 12 AM EDT > Apryl [place] 02/08/2025 05:04:06 PM EDT > See phone encounter ?LAB: Glycohemoglobin A1c (in house) (Collection Date & Time - 02/07/2025)? 5.3 Normal* Value Reference Range g lycohemoglobin 5.3% 5 - 6.5 % * Ofe King 02/07/2025 10:16: 36 AM EDT > Apryl [place] 02/08/2025 05:04:06 PM EDT > See phone encounter 4.?Stage 3b chronic kidney disease?LAB: P-Comprehensive Metabolic Panel (CMP) (Collection Date & Time - 02/07/2025 08:45 AM)?Cr 1.10, gfr 53* Value Reference Range A /G Ratio 1.8 1.1-2.5 - * A lbumin 4.5 3.5-5.3 - g/dL * A lkaline Phosphatase 99 35-121 - IU/L * A LT (SGPT) 18 <5-47 - IU/L * A ST (SGOT) 20 <5-40 - IU/L * B ilirubin, Total 0.9 <0.2-1.2 - mg/dL * B UN 15 8-23 - mg/dL * C alcium 10.0 8.6-10.4 - mg/dL * C hloride 102 97-108 - mmol/L * C O2 28 22-32 - mmol/L * C reatinine 1.10 H 0.50-1.00 - mg/dL * G lucose 99 65-99 - mg/dL * P otassium 4.6 3.5-5.3 - mmol/L * S odium 142 135-145 - mmol/L * P rotein 7.0 6.0-8.3 - g/dL * e GFR by Creatinine 53 L >59 - mL/min/1.73m2 * Apryl [place] 02/08/2025 05: 04:06 PM EDT > See phone encounter ?LAB: P-Phosphorus (Collection Date & Time - 02/07/2025 08:45 AM)?Normal* Value Reference Range P hosphorus 4.1 2.5-4.5 - mg/dL * EwelinaApryl 02/08/2025 05: 04:06 PM EDT > See phone encounter ?LAB: CBC Venipuncture (in house) (Collection Date & Time - 02/07/2025)?rbc 5.79* Value Reference Range w bc 7.0 3.5 - 10 * l ymph 24.9% 15 - 50 * m id 6.0% 2 - 15 * g ran 4.8% 35 - 80 * r bc 5.79 3.5 - 5.5 * h gb 16.3 11.5 - 16.5 * h ct 49.8 35 - 55 * m cv 86.0 75 - 100 * m ch 28.2 25 - 35 * m chc 32.8 31 - 38 * p latlet 242 100 - 400 * King Ofe 02/07/2025 10:14: 34 AM EDT > EwelinaApryl russ 02/08/2025 05:04:06 PM EDT > See phone encounter 5.?Vitamin D deficiency?LAB: P-Vitamin D 25-Hydroxy (Collection Date & Time - 02/07/2025 08:45 AM)? Normal* Value Reference Range V itamin D 25-Hydroxy 74.0 30.0-100.0 - ng/mL * Apryl Theodore 02/08/2025 05: 04:06 PM EDT > See phone encounter 6.?Fear of flying? Start ALPRAZolam Tablet, 0.25 MG, 1 or 2 tablets, Orally, once daily As needed, 4, Refills 0.? * Procedure Codes: G 2211 Complex e/[place], [address] GLUCOSE TEST, 33138 GLYCATED HEMOGLOBIN TEST, Modifiers: QW , 36088 CBC WITH AUTO DIFF, 1036F TOBACCO NON-USER, 3044F HG A1C LEVEL LT 7.0%, G8950 PREHTN/HTN BP DOC INDCD F/U DOC, G8752 MOST RECENT SYSTOLIC BP < 140MM HG, G8754 MOST RECENT DIASTOLIC BP < 90MM HG * Follow Up: 6 Months * Images: Billing Information: * Visit Code: 98970 Office Visit, Est Pt., Level 4. * Procedure Codes: G2211 Complex e/[place]. [address] GLUCOSE TEST. 46064 GLYCATED HEMOGLOBIN TEST. Modifiers: QW 96437 CBC WITH AUTO DIFF. 1036F TOBACCO NON-USER. 3044F HG A1C LEVEL LT 7.0%. G8950 PREHTN/HTN BP DOC INDCD F/U DOC. G8752 MOST RECENT SYSTOLIC BP < 140MM HG. G8754 MOST RECENT DIASTOLIC BP < 90MM HG. * Electronic signature of Melina Campos MD on 05/16/2025 at 11:24 AM EDT Sign off status: Pending * Provider: Daniella Campos M.D. Date: 0 02/07/2025 Generated for Terese oconnor/Josefa/eTransmitting on: 0 05/16/2025 11:24 AM EDT History and Physical Notes * HPI (History of Present Illness) Category Sub-Category Detail Notes Category Not es Endocrinology Recent Blood Sugars Pt here to f/u on DM Cardiology Blood Pressure Elevated Pt here for 6 mo f/u on hypertension. Pt states she is doing well and does not have any concerns Hyperlipidemia Pt is fasting today Examination Category Sub-Category Detail Notes Category Not es Cardiology Lungs: clear, no rales or wheezes HEENT: unremarkable Heart sounds: RRR, normal S1, S2 Extremities: trace bilateral leg edema General Appearance: pleasant, NAD
--- OUTSIDE RECORDS SUMMARY | 2025-05-16 11:24 | XMS_ITS | Encounter Summary ---
Author Organization [facility] Address [address] [place] [id number] Care Team Providers Care Medical Records Custodian Name Role Phone Kasi Campos MD Primary Care Provider [phone] Reason for Visit * Reason Comments Med Refill Encounter Details Date Type Department Care Team (Late st Contact Info) Description 04/13/2025 Refill [facility] CARDIOLOG[facility] [address] [facility] [address] [place] [address] Daljit Murphy MD [address] [facility] [address] [place] [address] Med Refill Social History Tobacco Use Types Packs/Day Years Used Date Smoking Tobacco: Never Passive Smoke Exposure: Never Smokeless Tobacco: Never Alcohol Use Standard Drinks/Week Comments Yes 0 (1 standard drink = 0.6 oz pur e alcohol) rare Comments No Sex and Gender Information Value Date Recorded Sex Assigned at Not on file Legal Sex Female 10:03 AM EDT Gender Identity Not on file Sexual Orientation Not on file documented as of this encounter Plan of Treatment Upcoming Encounters Date Type Department Care Team (Late st Contact Info) Description 07/19/2025 11:30 AM EST Appointment [facility] C[facility]OLOG[facility] [address] [place] [address] 11/24/2025 10:15 AM EDT Office Visit [facility] CARDIOLOG[facility] [address] [facility] [place] [address] [place] [address] Daljit Murphy MD [address] [place] [address] documented as of this encounter Visit Diagnoses Not on filedocumented in this encounter Care Teams Medical Records Custodian Relationship Specialty Start Date End Date Kasi Campos MD [address] [facility] [address] [place] [address] PCP - General Family Medicine 02/10/20 documented as of this encounter
--- OUTSIDE RECORDS SUMMARY | 2025-05-16 11:24 | XMS_ITS | Clinical Summary ---
[facility] Organization [facility] Address [address] [place] [address] Care Team Providers Care Car Restorer Name Role Phone Kasi Campos MD Primary Care Provider [phone] Allergies No known active allergies Medications Cholecalciferol (VITAMIN D3) 2000 UNITS tablet Take by mouth. Activ e aspirin 325 MG tablet Take 1 tablet by mouth Daily. Active omeprazole (PriLOSEC) 20 MG capsule Take 1 capsule by mouth Daily. Active triamterene-hydr ochlorothiazide (MAXZIDE-25) 37.5-25 MG per tabletIndication s:Healthcare maintenance TAKE 1/2 TAB BY MOUTH DAILY 45 tablet 3 6 Active metoprolol succinate XL (TOPROL-XL) 100 MG 24 hr tabletIndication s:Healthcare maintenance Take 1 tablet by mouth daily. 90 tablet 3 6 Active cetirizine (zyrTEC) 5 MG tablet Take 1 tablet by mouth Daily. Active PATIENT SUPPLIED ALLERGY INJECTION Inject under the skin into the appropriate area as directed Every 30 (Thirty) Days. Monthly or as needed Active losartan (COZAAR) 100 MG tablet Take 1 tablet by mouth Daily. Active azelastine (ASTELIN) 0.1 % nasal spray Administer 2 sprays into the nostril(s) as directed by provider 2 (Two) Times a Day As Needed. 0 Active Farxiga 10 MG tablet Take 10 mg by mouth Daily. 2 Active Ozempic, 0.25 or 0.5 MG/DOSE, 2 MG/3ML solution pen-injector Inject 0.5 mg under the skin into the appropriate area as directed 1 (One) Time Per Week. 3 Active rosuvastatin (CRESTOR) 10 MG tablet Take 1 tablet by mouth once daily 90 tablet 1 5 Active flecainide (TAMBOCOR) 100 MG tablet Take 1 tablet by mouth twice daily 180 tablet 5 Active Active Problems Problem Noted Date Diagnosed Date Chronic cough 12/19/2016 GERD (gastroesophageal reflux disease) 7 Premature atrial contractions 08/18/2003 Overview (01/16/2016): Holkter 2003 revealing PAC's, GST cardiolite 2004 normal. EKG 2111 revealing PAC's. Echo 05/19/2112-Mild LVH EF 55-60% Mild MR nl Left atrial size Hypertension Hyperlipidemia Encounters Date Type Department Care Team Description 04/13/2025 Refill [facility] [address] [place] [address] [address] [place] [address] Daljit Murphy MD Med Refill from Last 3 Months Family History Medical History Relation Name Comments Breast cancer Neg Hx Ovarian cancer Neg Hx Relation Name Status Comments Father Mother Social History Tobacco Use Types Packs/Day Years Used Date Smoking Tobacco: Never Passive Smoke Exposure: Never Smokeless Tobacco: Never Tobacco Cessation:Counseling Given: Not Answered Alcohol Use Standard Drinks/Week Comments Yes 0 (1 standard drink = 0.6 oz pur e alcohol) rare Comments No Sex and Gender Information Value Date Recorded Sex Assigned at Not on file Legal Sex Female 10:03 AM EDT Gender Identity Not on file Sexual Orientation Not on file Last Filed Vital Signs Vital Sign Reading Time Taken Comments Blood Pressure 118/64 07/29/2024 10:56 AM EST Pulse 79 07/29/2024 10:56 AM EST Temperature - - Respiratory Rate - - Oxygen Saturation 95% 07/29/2024 10:56 AM EST Inhaled Oxygen Concentration - - Weight 96.6 kg (213 lb) 07/29/2024 10:56 AM EST Height 149.9 cm (4' 11 ) 07/29/2024 10:56 AM EST Body Mass Index 43.02 07/29/2024 10:56 AM EST Plan of Treatment Upcoming Encounters Date Type Department Care Team (Late st Contact Info) Description 07/19/2025 11:30 AM EST Appointment [facility] [address] [place] [address] 11/24/2025 10:15 AM EDT Office Visit [facility] [address] [place] [address] Daljit Murphy MD [address] [address] [place] [address] Health Maintenance Due Date Last Done Comments DXA SCAN 1952 LIPID PANEL 1952 COLON CANCER SCREENING 5 YEA R SIGMOIDOSCOPY [address] COLONOGRAPHY 1997 FECAL OCCULT BLOOD TEST 1997 FIT Testing (1 year) 1997 ANNUAL WELLNESS VISIT 12/19/2016 HEPATITIS C SCREENING 12/19/2016 COLOGUARD 05/14/2024 05/14/2021, 03/18/2018 COLORECTAL CANCER SCREENING 05/14/2024 MAMMOGRAM 09/13/2024 09/13/2022, 08/18, 07/27/2020, Additional history exists INFLUENZA VACCINE 03/18/2025 05/04/2024, , 05/19/2021, Additional history exists COVID-19 Vaccine (2023- 5 season) 2025 05/04/2024, 05/17/2023, 05/30/2022, Additional history exists TDAP/TD VACCINES (2 - Td or Tdap) 05/18/2027 017 Pneumococcal Vaccine 50+ Completed 023, 06/22/2020, 05/26/2019, Additional history exists ZOSTER VACCINE Completed 10/16/2024, 07/18, 05/26/2019 Procedures Procedure Name Priority Date/Time Associated Diagnosis Comments MAMMO SCREENING DIGITAL TOMOSYNTHESIS BILATERAL W CAD Routine 09/13/2022 2:38 PM EST Visit for screening mammogram from Last 3 Months or Most Recently Relevant to Health Maintenance Results * Mammo Screening Digital Tomosynthesis Bilateral With CAD (09/13/2022 2:38 PM EST) Anatomical Region Laterality Modality Breast N/A Mammography 09/17/2022 5:57 PM EST Impressions 09/17/2022 6:00 PM EST No mammographic findings suspicious for malignancy. RECOMMENDATION: Continue annual screening mammography. BI-RADS CATEGORY 1, NEGATIVE. CAD was utilized. The standard false-negative rate of mammography is between 10% and 25%. Complex patterns or increased breast density will markedly elevate the false-negative rate of mammography. A letter, in lay terminology, with the results of this exam will be mailed to the patient. This report was finalized on 09/17/2022 6:[address] Elvira Singh MD. Narrative 09/17/2022 6:00 PM EST BILATERAL SCREENING MAMMOGRAM WITH TOMOSYNTHESIS: HISTORY: The patient has no personal history or significant family history of breast cancer and no focal breast complaints at the time of screening mammography. She has lost 10 pounds since her prior mammogram. TECHNIQUE: Bilateral CC and MLO low dose, full field digital mammographic images were obtained with 2-D acquisitions and tomosynthesis. COMPARISON: 09/04/2021, 07/27/2020, 07/05/2019, 07/03/2018, 07/02/2017, 07/01/2016, and 06/28/2015 FINDINGS: The breast tissue is almost entirely fatty in density. The fibroglandular pattern is stable. There are no suspicious masses, worrisome calcifications, nonsurgical areas of architectural distortion, or other secondary signs of malignancy. Kasi Campos MD IMG MAMMOGRAPHY ORDERABLES F inal Result from Last 3 Months or Most Recently Relevant to Health Maintenance Insurance Roxanna DOYLE, [place] [address] [facility] Medicare [employer] PPO [place] [id number] Care Teams Car Restorer Relationship Specialty Start Date End Date Kasi Campos MD [address] [facility] [address] [facility] [address] [place] [address] PCP - General Family Medicine 02/10/20
--- OUTSIDE RECORDS SUMMARY | 2025-05-16 11:25 | XMS_ITS | Patient Health Record ---
Author Organization [facility] Address [address] [facility] [address] [place] [id number] Care Team Providers Care Chain Offbearer Name Role Phone Hipolito Camposian Primary Care Provider Neptali Jalyn Unavailable [phone] Allergies No Known Allergies Results Component Value [...] 50 Performing Lab: Notes/Report: Test performed by [facility], [facility] , [address], [place] [address] Dajuan Richard MD, Support Services Manager CLIA: [id number] Sodium 140 135-145 mmol/L Potassium 4.5 3.5-5.3 mmol/L Chloride 103 97-108 mmol/L CO2 26 22-32 mmol/L Glucose 105 65-99 mg/dL BUN 18 8-23 mg/dL Creatinine 1.16 0.50-1.00 mg/dL Calcium 9.5 8.6-10.4 mg/dL eGFR by Creatinine 50 >59 mL/min/1.73m2 P-Phosphorus Reviewed date:08/10/2024 10:58:00 AM Interpretation: Normal Performing Lab: Notes/Report: Test performed by [facility] [employer] [address] [place] [address] , [address], [place] [address] Dajuan Richard MD, Support Services Manager CLIA: [id number] Phosphorus 4.1 2.5-4.5 mg/dL P-Vitamin D 25-Hydroxy Reviewed date:08/10/2024 10:58:00 AM Interpretation: Normal Performing Lab: Notes/Report: Test performed by [facility] [address] [place] [address] , [address], [place] [address] Dajuan Richard MD, Support Services Manager CLIA: [id number] Vitamin D 25-Hydroxy 72.4 30.0-100.0 ng/mL Interpretation of Vitamin D 25 OH: < 20 ng/mL - Deficiency 20 - 29 ng/mL - Insufficiency 30 - 100 ng/mL - Sufficiency > 100 ng/mL - Super-therapeutic- toxicity may occur above this level. Clinical correlation required. Rapid Strep- Inhouse Reviewed date:09/08/2024 10:59:57 AM [...] - 38 plat 163 100 - 400 Glucose (In-House) Reviewed date:02/08/2025 05:04:15 PM Interpretation:112 [...] 53 Performing Lab: Notes/Report: Test performed by [facility] [address] [place] [address] , [address], [place] [address] Dajuan Richard MD, Support Services Manager CLIA: [id number] Sodium 142 135-145 mmol/L Potassium 4.6 3.5-5.3 [...] Interpretation:Normal Performing Lab: Notes/Report: Test performed by [facility] [address] [place] [address] , [address], [place] [address] Dajuan Richard MD, Support Services Manager CLIA: [id number] Cholesterol 120 <200 mg/dL Triglycerides 120 <150 [...] Results: 64 Units: mg/dL % Change: -7% ------- Test Date: 02/06/2024 LDL Results: 61 Units: mg/dL % Change: -4% ------- Test Date: 02/07/2025 LDL Results: 48 Units: mg/dL % Change: -21% P-Phosphorus Reviewed date:02/08/2025 05:04:15 PM Interpretation:Normal Performing Lab: Notes/Report: Test performed by [employer] [address] , [address], [place] [address] Dajuan Richard MD, Support Services Manager CLIA: [id number] Phosphorus 4.1 2.5-4.5 mg/dL P-TSH reflex to FT4 Reviewed date:02/08/2025 05:04:15 PM Interpretation:Normal Performing Lab: Notes/Report: Test performed by [facility] [employer] [address] , [place] [address] Dajuan Richard MD, Support Services Manager CLIA: [id number] TSH reflex to FT4 2.70 0.43-5.25 mU/L P-Microalbumin/Creatinine, R andom Urine Sample Reviewed date:02/08/2025 05:04:15 PM Interpretation:Normal Performing Lab: Notes/Report: Test performed by [facility] [employer] [address] , [place] [address] Dajuan Richard MD, Support Services Manager CLIA: [id number] Albumin/Creatinine Ratio, Urine <5.57 0-30 ug/mg Microalbumin, Urine, Random <0.3 Creatinine, Urine 53.8 P-Vitamin D 25-Hydroxy Reviewed date:02/08/2025 05:04:15 PM Interpretation:Normal Performing Lab: Notes/Report: Test performed by [facility] [employer] [address] , [place] [address] Dajuan Richard MD, Support Services Manager CLIA: [id number] Vitamin D 25-Hydroxy 74.0 30.0-100.0 ng/mL Interpretation of Vitamin D 25 OH: < 20 ng/mL - Deficiency 20 - 29 ng/mL - Insufficiency 30 - 100 ng/mL - Sufficiency > 100 ng/mL - Super-therapeutic- toxicity may occur above this level. Clinical correlation required. Mammogram Reviewed date:09/28/2024 09:13:46 AM Interpretation:Negative, annual f/u Performing Lab: Notes/Report: Negative, annual f/u result Negative, annual f/u Medications Medication SIG (Take, Route, Frequency, Duration) Notes Start Date End Date Status Aspirin Adult Low Dose 81 MG 1 tablet Orally Once a day Active Crestor 10 MG 1 tab(s) orally once a day Active Toprol XL 100 MG 1 tab(s) orally Once a day; Duration: 90 days Active Triamterene-HCTZ 37.5-25 MG 1/2 tablet Orally Once a day; Duration: 90 days Active Dapagliflozin Propanediol 10 MG 1 tablet Orally Once a day; Duration: 90 days Active ALPRAZolam 0.25 MG 1 or 2 tablets Orally once daily As needed 02/07/2025 Active Losartan Potassium 100 MG 1 tablet Orally Once a day; Duration: 90 days Active Ozempic (1 MG/DOSE) 4 MG/3ML 1 mg Subcutaneous once a week; Duration: 28 days If pt needs an increase please specify or have pt request refill by calling the office. Active PriLOSEC OTC 20 MG 1 tab(s) orally once a day Active ZyrTEC Allergy 10 MG 1 tab(s) orally onc e a day Active Flecainide Acetate 100 MG 1 tab(s) orally twice daily Active Vitamin D3 50 MCG (1999 UT) 2 cap(s) orally once a day 12/13/2015 Active ALLERGY INJECTIONS DIRECTED PER APPRENTICE LINEMAN THIRD STEP Active Immunizations Vaccine Route Administration Date Status Comme nts xFluzone High Dose-private (65yr&older) Unknown 05/16/2018 Administered xFluzone High Dose-private (65yr&older) Unknown 06/16/2019 Administered Tetanus Tdap-Adacel (over 7yrs) Unknown 05/18/2017 Administered Shingrix Unknown 05/26/2019 Administered Shingrix Unknown 07/28/2019 Administered Prevnar (PCV20) IM Intramuscular 09/02/2022 Administered Prevnar (PCV13) IM Intramuscular 06/11/2018 Administered G iven by MP Prevnar (PCV13) Unknown 05/26/2019 Administered PNEUMOVAX 23 VACCINE Unknown 06/22/2020 Administered Fluzone PF Quad (6-35 months) Unknown 07/06/2016 Administered Fluzone PF Quad (6-35 months) Unknown 05/18/2017 Administered Fluzone High Dose (65yr and older) Unknown 05/26/2020 Administered Fluzone High Dose (65yr and older) Unknown 05/19/2021 Administered Fluzone High Dose (65yr and older) Unknown 05/30/2022 Administered COVID 19 Moderna Unknown 10/18/2020 Administered COVID 19 Moderna Unknown 11/15/2020 Administered COVID 19 Moderna Unknown 06/12/2021 Administered COVID 19 Moderna Unknown 12/29/2021 Administered Problems Problem Type SNOMED Code ICD Code Onset Dates Problem Status W/U Status Risk Notes Problem Essential hypertension (04595125) Essential (primary) hypertension (I10) Active confirmed Problem Vitamin D deficiency (65857301) Vitamin D deficiency (E55.9) Active confirmed Problem Morbid obesity (059882306) Morbid obesity (E66.01) Active confirmed Problem Diabetic renal disease (942996825) Type 2 diabetes mellitus with diabetic chronic kidney disease (E11.22) Active confirmed Problem Mixed hyperlipidemia (611895253) Mixed hyperlipidemia (E78.2) Active confirmed Problem Hyperlipidemia (94730530) Hyperlipidemia, unspecified (E78.5) Active confirmed Problem Fear of flying (932848464) Fear of flying (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) Active confirmed Problem Chronic pain (73771374) Other chronic pain (G89.29) Active confirmed Problem Body mass index 40+ - morbidly obese (366005447) BMI 40.0-44.9, adult (Z68.41) Active confirmed Problem Cardiac dysrhythmia (683092809) Cardiac dysrhythmia, unspecified (I49.9) Active confirmed Problem Obesity (772258660) Non morbid obesity (E66.9) Active confirmed Problem Arthritis of left knee (2336577447212504 ) Arthritis of left knee (M17.12) Active confirmed Problem Chronic kidney disease stage 3B (disorder) (992978588) Stage 3b chronic kidney disease (N18.32) Active confirmed Vital Signs Heart Rate 77 /min 02/07/2025 Blood pressure diastolic 76 mm Hg 02/07/2025 Height 62 in 02/07/2025 Blood pressure systolic 122 mm Hg 02/07/2025 Weight 210.8 lbs 02/07/2025 BMI 38.55 kg/m2 02/07/2025 Encounters Encounter Location Date Provider Diagnosis [facility] [address] [place], [place] [id number] 08/09/2024 Kasi Campos Type 2 diabetes zara itus with diabetic chronic kidney disease E11.22 ; Stage 3b chronic kidney disease N18.32 ; Essential (primary) hypertension I10 ; Vitamin D deficiency E55.9 and Colon cancer screening Z12.11 [facility] [address] [place], [place] [id number] 09/08/2024 Jalyn Gunderson Acute pharyngitis du e to other specified organisms J02.8 and Other specified bacterial agents as the cause of diseases classified elsewhere B96.89 [facility] [address] [place], [place] [id number] 02/07/2025 Kasi Riverside Essential (primary) hypertension I10 ; Mixed hyperlipidemia E78.2 ; Type 2 diabetes mellitus with diabetic chronic kidney disease E11.22 ; Stage 3b chronic kidney disease N18.32 ; Vitamin D deficiency E55.9 ; Non morbid obesity E66.9 and Fear of flying F40.243 [facility] [address] [place], [place] [id number] 05/17/2024 Kasi [place] [facility] [address] [place], [place] [id number] 07/19/2024 Kasi [place] Type 2 diabetes zara itus with diabetic chronic kidney disease E11.22 [facility] [address] [place], [place] [id number] 08/10/2024 Kasi [place] [facility] [address] [place], [place] [id number] 09/20/2024 Kasi [place] [facility] [address] [place] [id number] 02/07/2025 Kasi [place] [facility] [address] [place], [place] [id number] 02/08/2025 Kasi [place] [facility] [address] [place], [place] [id number] 02/10/2025 Kasi [place] Assessments Encounter Date Diagnosis (ICD Code) Assessment Notes Treatment Notes Treatment Clinical Notes Section Notes 07/19/2024 Type 2 diabetes mellitus with diabetic chronic kidney disease (ICD-10 - E11.22) 08/09/2024 Type 2 diabetes mellitus with diabetic chronic kidney disease (ICD-10 - E11.22) 08/09/2024 Stage 3b chronic kidney disease (ICD-10 - N18.32) 09/08/2024 Other specified bacterial agents as the cause of diseases classified elsewhere (ICD-10 - B96.89) Rest, Fluids, tylenol or motrin for fever, gargle with warm water or salt water, throw away toothbrush after a few days on the antibiotic 09/08/2024 Acute pharyngitis due to other specified organisms (ICD-10 - J02.8) 02/07/2025 Essential (primary) hypertension (ICD-10 - I10) 02/07/2025 Mixed hyperlipidemia (ICD-10 - E78.2) 02/07/2025 Type 2 diabetes mellitus with diabetic chronic kidney disease (ICD-10 - E11.22) 08/09/2024 Essential (primary) hypertension (ICD-10 - I10) 08/09/2024 Vitamin D deficiency (ICD-10 - E55.9) 02/07/2025 Stage 3b chronic kidney disease (ICD-10 - N18.32) 02/07/2025 Vitamin D deficiency (ICD-10 - E55.9) 08/09/2024 Colon cancer screening (ICD-10 - Z12.11) 02/07/2025 Non morbid obesity (ICD-10 - E66.9) 02/07/2025 Fear of flying (ICD-10 - F40.243) Plan Of Treatment Pending Test Test Name Order Date colonoscopy 08/09/2024 Next Appt Details Provider Name:Kasi kumar, 08/09/2025 09:15:00 AM, [address] [facility], [address], [place], [place], [id number], Insurance Providers Payer Name Payer Address Payer Phone Subscriber Number Group Number Insured Name Patient Relationship to Insured Coverage Start Date Coverage End Date [employer] [address] [address] [place], [place] [id number] MACIAS Self - patient is the insured Medications Administered Medication Instructions Date of Administration Dosage Notes phenergan 25 mg/ml 01/29/2008 1 mL Medical (General) History Medical History History ICD Code Hypertension Cardiac Dysrrhythmia, PAC's 2003 Holter Cardiolyte GXT 2004 Allergies Hyperlipidemia Vitamin D Deficiency Sleep Apnea, Declines CPAP Gall Stone Pancreatitis, s/p ERCP at [facility] in [place], 10/2021 Colon Polyps Surgical History Surgery Date(Month/Year) Cholecystectomy 01/2013 LT Knee Replacement 11/01/2019 Hospitalization History Reason Date(Month/Year) Gallstones and Cholecystectomy 01/2013
== END 2025-05-15 23:59 ==
LOC: LAB.DROPOF 05-16 11:22
PROVIDERS: PCP Nurse Practitioner; Visit Provider Nurse Practitioner
DX: R35.0 Frequency of micturition (principal)
CPT/HCPCS: 87086; 87088